=== PATIENT | male | born 1965 | race Caucasian/White ===

== ENCOUNTER 2017-12-14 07:14 | Outpatient (CLI) | payer BC, SELFPAY ==
[2017-12-14 08:39] LABS: Cholesterol 271 mg/dL (50-200); HDL Cholesterol 32 mg/dL (40-60); LDL CHOLESTEROL 173 mg/dL (<100); TSH (W/Ref FT4) 8.67 uIU/mL (0.358-3.74); Triglyceride 335 mg/dL (30-150)
[2017-12-16 09:21] LABS: PSA, Screening 1.2 ng/ml (0-3.5)
== END 2017-12-14 07:34 ==
PROVIDERS: PCP Internal Medicine; Visit Provider Internal Medicine
DX: E78.00 Pure hypercholesterolemia, unspecified (principal); E03.9 Hypothyroidism, unspecified; Z80.42 Family history of malignant neoplasm of prostate; Z12.5 Encounter for screening for malignant neoplasm of prostate
CPT/HCPCS: 36415; 80061; 83721; 84153; 84439; 84443

== ENCOUNTER 2018-05-17 15:22 | Emergency (ER) | payer BC, SELFPAY ==
[2018-05-17] VITALS (78 sets, daily range): BP systolic 137–169; BP diastolic 70–109; PULSE 58–73; RESP 12–22; TEMP 37.2–37.6; O2SAT 92–97
--- NOTE | 2018-05-17 15:29 | DI.RAD_ITS ---
SYMPTOMS/DIAGNOSIS: CHEST PAIN CHEST X-RAY, FRONTAL AND LATERAL VIEWS: Comparison is 09/14/14. The heart size and pulmonary vasculature are within normal limits. There is mild elevation of the right hemidiaphragm, not present on the prior examination. The lungs are clear. No effusions or pneumothoraces are identified. Mild degenerative changes are seen in the spine. IMPRESSION: 1. No acute pulmonary process. 2. Interval mild elevation of the right hemidiaphragm.
[2018-05-17] MEDS: Aspirin 81 MG CHEW 324 MG CH (15:32)
[2018-05-17] MEDS: Normal Saline Flush 10 ML SYR IVP (15:35)
--- NOTE | 2018-05-17 15:39 | ED.GENADUL_ITS ---
Discharge Plan Disposition Patient Disposition: STILL A PATIENT Condition: Stable Discharge Details Chief Complaint: Chest Pain Clinical Impression: Chest pain Reason For Visit: chest pain / sob Primary Care Provider: Marly Correa ED Provider: Jefferson Arvizu Home Meds and New Rx's Prescriptions: No Action hydroxyzine HCl 25 mg tablet 25 - 50 mg PO QID PRN (Reason: anxiety) Qty: 30 RF: 0 levothyroxine 100 mcg capsule 100 mcg PO DAILY Qty: 90 RF: 3 fluticasone 50 mcg/actuation spray,suspension 50 mcg NS DAILY PRN (Reason: allergy symptoms) Qty: 1 RF: 1 cetirizine 10 mg tablet 10 mg PO DAILY Qty: 90 RF: 1 Discharge Data Discharge Date/Time-TO BE ENTERED AT DEPARTURE: 05/18/18 14:53 Medical Decision Making <Ravi Gilliland MD - Last Filed: 05/18/18 15:51> 52 yo male who has a hx of anxiety, cervical radiculopathy, who comes in with chief complaint of chest pain. He states every once in a while he gets mild chest tightness that doesn't cause shortness of breath, n/v, diaphoresis and bridger n doesn't radiate. HE is a former smoker, denies any drug use or significant alcohol use. No recent travel or surgeries. HE saw his pcp for this today and had an ekg done which he states showed old heart attack and he came here for an eval. Denies any pain now, states he may have had a 1-2/10 tightness in the chest an hour or so ago. He appears well on exam in no distress with clear lungs, no leg swelling or leticia fpain, clear lungs and no murmurs. His ekg shows q waves in inferior leads and large s waves in v1-v3 otherwise no acute findings. His heart score is 3 based on age and risk factors, will send troponin. His wells score is low, will send d dimer to eval for PE. No tearing back pain and normal vascular exam so doubt dissection pt will be signed out to Dr. Monzon pending lab work, imaging and disposition Differential Diagnosis acs, pe, ptx, anxiety, gerd, gastritis ECG Data Attestation: I personally reviewed and interpreted this ECG (s) as follows: Prior ECG tracings: available for review Interpretation: sinus rhythm, rate of 60, pr 156, q waves in inferior leads that are unchanged, no acute st t wave chagnes. HPI <Ravi Gilliland MD - Last Filed: 05/18/18 15:51> General Mode of arrival: ambulatory . Date/Time Provider Initiated Documentation: 05/17/18 15:22 . Limitations to Documentation: no limitations . Information obtained by: patient . History of Present Illness 52 year old M presents to the emergency department with the chief complaint of chest pain, described as mild, with intensity rated at 3. Quality is described as aching, and is localized to the chest. Patient reports no radiation. Patient started experiencing this day(s) (1) and it has been constant. No relieving factors improve symptom(s), No exacerbating factors reported . Patient did receive the following treatments prior to arrival, none Related Data Home Medications Medication Instructions Recorded Confirmed cetirizine 10 mg tablet 10 mg PO DAILY #90 tab-cap 12/15/17 05/18/18 fluticasone 50 mcg/actuation nasal 50 mcg NS DAILY PRN #1 inh 12/15/17 05/18/18 spray,suspension levothyroxine 100 mcg capsule 100 mcg PO DAILY #90 cap 12/15/17 05/18/18 hydroxyzine HCl 25 mg tablet 25 - 50 mg PO QID PRN #30 tab-cap 05/17/18 05/18/18 Previous Rx's Medication Instructions Recorded cetirizine 10 mg tablet 10 mg PO DAILY #90 tab-cap 12/15/17 fluticasone 50 mcg/actuation nasal 50 mcg NS DAILY PRN #1 inh 12/15/17 spray,suspension levothyroxine 100 mcg capsule 100 mcg PO DAILY #90 cap 12/15/17 hydroxyzine HCl 25 mg tablet 25 - 50 mg PO QID PRN #30 tab-cap 05/17/18 Allergies Allergy/AdvReac Type Severity Reaction Status Date / Time No Known Drug Allergies Allergy Verified 05/18/18 10:01 seasonal allergy Allergy nasal Uncoded 05/18/18 10:01 congestion, blood shot eyes to ragweed Review of Systems <Ravi Gilliland MD - Last Filed: 05/18/18 15:51> Review of Systems All systems reviewed & are unremarkable except as noted in HPI and below Constitutional Denies chills, Denies fever(s) and Denies weakness ENT Denies change in voice Respiratory Denies cough Gastrointestinal Denies abdominal pain, Denies nausea and Denies vomiting Genitourinary Denies dysuria Musculoskeletal Denies joint swelling Integumentary/Breasts Denies rash Neurologic Denies weakness Psychiatric Denies depression Endocrine Denies cold intolerance and Denies heat intolerance PFSH <Ravi Gilliland MD - Last Filed: 05/18/18 15:51> Medical History Radiculopathy, 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) Insomnia (Chronic 08/31/14) History of hypothyroidism (Chronic 10/04/14) Anxiety (Chronic 08/31/14) Allergic rhinitis (Chronic 03/26/16) Hypothyroidism (Inactive) Surgical History Tonsillectomy and adenoidectomy (Resolved) colonoscopy (Resolved 03/20/17) Family History Father Dysplastic polyp of colon Thyroid condition Prostate cancer Grandfather Neoplasm Maternal Uncle Myocardial infarction Sister Dysplastic polyp of colon Brother Dysplastic polyp of colon Social History household members: spouse and children lives independently: Yes number of children: 3 current occupational status: employed current occupation: Teacher [employer] what type of physical activity do you participate in: running frequency: 3-4 times per week duration: 15-30 minutes/day Smoking and Tabacco status: Former Tobacco Use alcohol intake: current alcohol intake frequency: 0-2 drinks per day Alcohol type: beer Exam <Ravi Gilliland MD - Last Filed: 05/18/18 15:51> Const General: no acute distress Orientation: alert HENMT Head: normal to inspection Ears: external ears normal General nose exam: external nose normal Mouth: moist mucous membranes Eyes General: appearance normal, both eyes and all related structures Neck Neck: normal visual inspection Resp Effort & Inspection: normal respiratory effort and able to speak in complete sentences Cardio Rate: regular rate Skin General skin exam: no rashes or lesions noted Neuro General: alert and oriented x3 Extrem General: normal to inspection Psych Mental Status: mental status grossly normal Sign Out <Ravi Gilliland MD - Last Filed: 05/18/18 15:51> Sign Out Data: Sign Out Comment: follow up on labs/imaging Last updated by Ravi Gilliland MD at 05/17/18 15:45 Post-Handoff Eval: Patient signed out to me pending laboratory studies and chest x-ray. He had presented with an atypical history, but had chest pain and palpitations Thursday. However, he was able to skin [employer] over the weekend. He states he was way more tired and out of when that he normally is. He also developed shortness of breath just going upstairs. He has not really had any more chest pain. He has been worried over the weekend that something is wrong and saw his primary today. An EKG was done in the office. It was abnormal with Q waves. He has been set up for outpatient testing but was concerned and anxious about the abnormal EKG and came here. Patient's laboratory studies for the most part are unremarkable. TSH is a little high but is T4 is normal. Magnesium a little low. Troponin came back indeterminate at 0.17. D-dimer is negative. Chest x-ray is unremarkable. His EKG done today at the office and here in the ED is unchanged from an EKG in our system from 2015. Q waves are old. Case is discussed with cardiology at [facility], Dr. Busch. Was not overly concerned but felt trending troponins and getting an ECHO and possibly stress test would be reasonable. Discussed this with patient. Attempted to admit overnight here but there are no monitor beds available. Patient does have out patient stress test set up for . After long discussion with patient decided to keep in the ED overnight for serial troponins and getting ECHO tomorrow. I do not have a good explanation as to why his troponins are indeterminate. I have trended them and they have not gone up. He denies any viral type symptoms in the last months making myocarditis/pericarditis seem less likely. We will keep him on the monitor overnight. We will get 1 more troponin and EKG in the morning. He is signed out to Dr. Roy who is the overnight doctor.
[2018-05-17 15:48] LABS: Abs Immature Grans 0.01 k/cumm (0.0-0.09); Absolute Basophil Count 0.04 k/cumm (0.0-0.2); Absolute Eosinophil Count 0.26 k/cumm (0.0-0.7); Absolute Lymphocyte Count 2.19 k/cumm (1.2-3.4); Absolute Monocyte Count 0.49 k/cumm (0.11-0.7); Absolute Neutrophil Count 3.36 k/cumm (1.2-6.7); Basophils % 0.6; Eosinophils % 4.1; HCT 44.8 % (40.0-50.0); HGB 15.6 g/dL (13.5-17.5); Immature Grans % 0.2; Lymphocytes % 34.5; Mean Corp. HGB Concentration 34.8 g/dL (32.0-36.0); Mean Corpuscular Hemoglobin 29.8 pg (27.0-33.0); Mean Corpuscular Volume 85.7 fL (80-95); Mean Platelet Volume 11.7 fL (8.0-11.0); Monocytes % 7.7; Neutrophils % 52.9; Platelet Count 196 x1000/uL (130-400); RBC 5.23 m/cumm (4.50-6.00); RBC Distribution Width 12.9 % (11.8-14.1); White Blood Cell Count 6.35 k/cumm (4.4-10.8)
[2018-05-17 16:02] LABS: ALT 57 U/L (12-78); AST 48 U/L (15-37); Albumin 3.8 g/dL (3.4-5.0); Alkaline Phosphatase 66 U/L (46-116); Anion Gap 7.9 mmol/L (3-11); BUN 18 mg/dL (7-18); Bilirubin, Direct 0.13 mg/dL (0.00-0.20); Bilirubin, Total 0.5 mg/dL (0.2-1.0); CO2 28.1 mmol/L (21.0-32.0); CREATININE 0.93 mg/dL (0.70-1.30); Calcium 8.5 mg/dL (8.5-10.1); Chloride 103 mmol/L (98-107); Glucose 102 mg/dL (70-100); Lipase 144 U/L (73-393); Magnesium 1.7 mg/dL (1.8-2.4); Potassium 3.9 mmol/L (3.5-5.1); Sodium 139 mmol/L (136-145)
[2018-05-17 16:04] LABS: Troponin I 0.17 ng/mL (0.00-0.06)
--- NOTE | 2018-05-17 16:29 | DI.VRAD_ITS ---
EXAM: XR Chest, 2 Views EXAM DATE/TIME: 05/17/2018 3:30 PM CLINICAL HISTORY: 52 years old, male; Pain; Chest pain TECHNIQUE: XR of the chest, 2 views. COMPARISON: CR CHEST 2 VIEWS PA,LAT 09/14/2014 4:46 PM FINDINGS: Lungs: Mild elevation of the right hemidiaphragm. No focal areas of consolidation. Pleural space: No pleural effusion or pneumothorax. Heart/Mediastinum: Cardiac and mediastinal silhouettes are unremarkable. Bones/joints: No acute osseus lesion or fracture. IMPRESSION: 1. No acute cardiopulmonary pathology. 2. Mild elevation of the right hemidiaphragm. Dictated and Authenticated by: Saad Molina MD. Ordering:DAVID Rodrigues MD
[2018-05-17 16:38] LABS: D-Dimer 348 ng/mlFEU (<500)
[2018-05-17 19:29] LABS: Troponin I 0.15 ng/mL (0.00-0.06)
[2018-05-17 19:32] LABS: NT-proBNP 44 pg/mL; TSH (W/Ref FT4) 7.56 uIU/mL (0.358-3.74)
[2018-05-17 19:58] LABS: FREE T4 0.83 ng/dL (0.76-1.46)
[2018-05-17 22:00] LABS: Troponin I 0.15 ng/mL (0.00-0.06)
[2018-05-17] MEDS: diphenhydrAMINE 25 MG CAP PO (22:46)
[2018-05-18] VITALS (111 sets, daily range): BP systolic 129–174; BP diastolic 72–105; PULSE 48–81; RESP 10–23; TEMP 37; O2SAT 90–99
[2018-05-18] MEDS: Levothyroxine 100 MCG TAB PO (06:23)
[2018-05-18] MEDS: Aspirin 81 MG CHEW 162 MG CH (06:24)
[2018-05-18 06:33] LABS: Troponin I 0.09 ng/mL (0.00-0.06)
[2018-05-18] MEDS: Aspirin 81 MG CHEW (08:25)
--- NOTE | 2018-05-18 08:26 | W.ED.FU ---
8:30 -- Care signed out to me by Dr. Roy with plan to follow-up on echo and disposition patient. Please see Dr. Monzon and Dr. Gilliland's documentation from initial ED presentation and course. I immediately evaluated the patient and clinial course. [facility] last [place] [facility] recommended [place]. [facility] [place] and unable to accept transfer overnight. [facility] med surg full. I reviewed the diagnostic workup. It seems the patient has an NSTEMI with improving, although still elevated troponins. I called and spoke with Dr. Arroyo, [facility] cardiology, who will accept the patient in transfer. Recommends starting heparin infusion, plavix, aspirin. 14:20 --patient reassessed and remained stable. Echocardiogram interpreted by cardiology: LV systolic function was normal. The EF was 60-65%. Some parameters suggest diastolic dysfunction. There is no evidence of elevated ventricular filling pressure by Doppler parameters. There is mild mitral valve regurgitation. The right ventricle cavity size was mildly dilated. Systolic function was mildly reduced. Inferior vena cava was noted to be mildly dilated. I called again and spoke with cardiology at [facility], Dr. Arroyo, and informed him of results. Plan at this time is to transfer as there is no bed available. Patient is in serious condition, stable at time of transfer. Critical care time: I spent greater than 35 minutes of critical care time with this patient addressing immediate life threats. Diagnosis: Elevated troponin, NSTEMI Disposition: Transfer to [facility]
--- NOTE | 2018-05-18 08:32 | ED.FU.B_ITS ---
8:30 -- Care signed out to me by Dr. Roy with plan to follow-up on echo and disposition patient. Please see Dr. Monzon and Dr. Gilliland's documentation from initial ED presentation and course. I immediately evaluated the patient and clinial course. [facility] [place] by team last night: [facility] [place], they recommended echo. [facility] remains full and unable to accept transfer overnight. [facility] med surg full. I reviewed the diagnostic workup. It seems the patient has an NSTEMI with improving, although still elevated troponins. I called and spoke with Dr. Arroyo, [facility] cardiology, who will accept the patient in transfer. Recommends starting heparin infusion, plavix, aspirin. 14:20 --patient reassessed and remained stable. Echocardiogram interpreted by cardiology: LV systolic function was normal. The EF was 60-65%. Some parameters suggest diastolic dysfunction. There is no evidence of elevated ventricular filling pressure by Doppler parameters. There is mild mitral valve regurgitation. The right ventricle cavity size was mildly dilated. Systolic function was mildly reduced. Inferior vena cava was noted to be mildly dilated. I called again and spoke with cardiology at [facility], Dr. Arroyo, and informed him of results. Plan at this time is to transfer as there is no bed available. Patient is in serious condition, stable at time of transfer. Critical care time: I spent greater than 35 minutes of critical care time with this patient addressing immediate life threats. Diagnosis: Elevated troponin, NSTEMI Disposition: Transfer to [facility]
[2018-05-18] MEDS: Clopidogrel 300 MG TAB PO (08:35)
[2018-05-18] MEDS: LORazepam 1 MG TAB PO (09:00)
--- NOTE | 2018-05-18 09:00 | MERGE_ITS ---
*[facility]* * Cardiology* [address] [place] [address] Date of study: 05/18/2018 Transthoracic Echocardiography M-mode, complete 2D, complete spectral Doppler, and color Doppler *STUDY CONCLUSIONS* Summary: 1. Left ventricle: The cavity size was normal. Systolic function was normal. The estimated ejection fraction was 60-65%. Some parameters suggest diastolic dysfunction. There was no evidence of elevated ventricular filling pressure by Doppler parameters. 2. Mitral valve: There was mild regurgitation. 3. Right ventricle: The cavity size was mildly dilated. Systolic function was mildly reduced. 4. Atrial septum: No defect or patent foramen ovale was identified. 5. Pulmonary arteries: Pulmonary systolic pressure was in the range of 35mm Hg to 45mm Hg. 6. Inferior vena cava: The vessel was mildly dilated. The respirophasic diameter changes were in the normal range (greater than or equal to 50%), RAP est 5-10 mmHg.. *PATIENT PRESENTATION* Height: 190.5cm ((75in) ) S/D Pressure: 140 / 88 Weight: 99.3kg ((218.5lb) ) BSA: 2.31m^2 Test start time: 09:15 AM. Test stop time: 10:10 AM. CONSULTING Marly Correa [facility] [employer]PARATION SUPERVISOR RT Ethan (R)(CT), [facility] ORDERING River Monzon Robert J REFERRING Grant *PROCEDURE DATA* Procedure information: The patient was identified by two identifiers. This study was interpreted by [facility]. Pertinent images and digital data are archived for permanent storage and are available for subsequent review. No prior study was available for comparison. Study status: STAT. Transthoracic echocardiography. M-mode, complete 2D, complete spectral Doppler, and color Doppler. A Transthoracic Echocardiogram was performed. Scanning was performed from the parasternal, apical, subcostal, and suprasternal notch acoustic windows. Images were obtained using an [id number] cardiac ultrasound machine. Study completion: The patient tolerated the procedure well. History: PMH: Wade pain. Indeterminate troponin. *CARDIAC ANATOMY* Left ventricle: The cavity size was normal. Systolic function was normal. The estimated ejection fraction was 60-65%. The tissue Doppler parameters were abnormal. Some parameters suggest diastolic dysfunction. There was no evidence of elevated ventricular filling pressure by Doppler parameters. Aortic valve: Trileaflet. Doppler: There was no stenosis. There was no regurgitation. VTI ratio of LVOT to aortic valve: 0.72. Valve area (VTI): 2.2cm^2. Indexed valve area (VTI): 1cm^2/m^2. Peak velocity ratio of LVOT to aortic valve: 0.69. Valve area (Vmax): 2.1cm^2. Indexed valve area (Vmax): 0.9cm^2/m^2. Mean velocity ratio of LVOT to aortic valve: 0.67. Valve area (Vmean): 2.1cm^2. Indexed valve area (Vmean): 0.9cm^2/m^2. Mean gradient (S): 6.8mm Hg. Peak gradient (S): 11.8mm Hg. Aorta: Aortic root: The aortic root was normal in size. Mitral valve: Doppler: There was no evidence for stenosis. There was mild regurgitation. Valve area by pressure half-time: 2.3cm^2. Indexed valve area by pressure half-time: 1cm^2/m^2. Left atrium: The atrium was normal in size. Atrial septum: No defect or patent foramen ovale was identified. Right ventricle: The cavity size was mildly dilated. Systolic function was mildly reduced. Pulmonic valve: Doppler: There was no evidence for stenosis. There was no significant regurgitation. Tricuspid valve: Doppler: There was mild regurgitation. Pulmonary artery: Poorly visualized. Pulmonary systolic pressure was in the range of 35mm Hg to 45mm Hg. Right atrium: The atrium was normal in size. Pericardium: There was no pericardial effusion. Systemic veins: Inferior vena cava: Well visualized. The vessel was mildly dilated. The respirophasic diameter changes were in the normal range (greater than or equal to 50%), RAP est 5-10 mmHg.. Baseline ECG: Normal sinus rhythm. Measurements Left ventricle Value Reference LV ID, ED, PLAX 5.1 cm 3.5 - 6.0 LV ID, ES, PLAX 3.4 cm 2.1 - 4.0 LV PW thickness, ED, PLAX 1.1 cm LV end-diastolic volume, 1-p A2C 113 ml LV ejection fraction, 1-p A2C 67 % LV end-diastolic volume, 1-p A4C 123 ml LV ejection fraction, 1-p A4C 57 % LV e', lateral 0.045 m/sec LV E/e', lateral 14 LV e', medial 0.051 m/sec LV E/e', medial 12 LV e', average 0.048 m/sec LV E/e', average 13 Ventricular septum Value Reference IVS thickness, ED, PLAX 1.2 cm LVOT Value Reference LVOT ID, A-P 2.0 cm LVOT area 3.1 cm^2 LVOT peak velocity, S 1.18 m/sec LVOT mean velocity, S 0.85 m/sec LVOT VTI, S 25.2 cm LVOT peak gradient, S 5.6 mm Hg LVOT mean gradient, S 3.2 mm Hg Stroke volume (SV), LVOT DP 78 ml Stroke index (SV/bsa), LVOT DP 34 ml/m^2 Aortic valve Value Reference Aortic valve peak velocity, S 1.7 m/sec Aortic valve mean velocity, S 1.26 m/sec Aortic valve VTI, S 35.0 cm Aortic mean gradient, S 6.8 mm Hg Aortic peak gradient, S 11.8 mm Hg VTI ratio, LVOT/AV 0.72 Aortic valve area, VTI 2.2 cm^2 Velocity ratio, peak, LVOT/AV 0.69 Aortic valve area, peak velocity 2.1 cm^2 Velocity ratio, mean, LVOT/AV 0.67 Aortic valve area, mean velocity 2.1 cm^2 Aortic valve area/bsa, mean velocity 0.9 cm^2/m^2 Aorta Value Reference Aortic root ID, ED 3.3 cm Left atrium Value Reference LA ID, A-P, ES 4.3 cm LA ID/bsa, A-P 1.9 cm/m^2 <=2.2 LA area, ES, A4C 23.1 cm^2 8.8 - 23.4 LA area, ES, A2C 22 cm^2 LA volume/bsa, ES, 1-p A4C 35 ml/m^2 LA volume, ES, 2-p 71 ml LA volume/bsa, ES, 2-p 31 ml/m^2 LA/aortic root ratio 1.32 Mitral valve Value Reference Mitral E-wave peak velocity 0.63 m/sec Mitral A-wave peak velocity 0.87 m/sec Mitral deceleration time (H) 326 ms 150 - 230 Mitral pressure half-time 94 ms Mitral E/A ratio, peak 0.73 Mitral valve area, PHT, DP 2.3 cm^2 Pulmonary veins Value Reference Pulmonary vein peak velocity, S 0.6 m/sec Pulmonary vein peak velocity, D 0.39 m/sec Pulmonary vein velocity ratio, peak, 1.55 S/D Pulmonary vein A-wave reversal peak 0.32 m/sec velocity Tricuspid valve Value Reference Tricuspid regurg peak velocity 2.8 m/sec Tricuspid peak RV-RA gradient 30.3 mm Hg Right atrium Value Reference RA area, ES, A4C 18.3 cm^2 8.3 - 19.5 Legend: (L) and (H) harvey values outside specified reference range. I have personally reviewed the images and have reviewed and edited the reported findings. Electronically signed by Ravi Liu MD 05/18/2018 11:27
[2018-05-18] MEDS: Lactated Ringers 1,000 ML 125 ML IV (10:51)
== END 2018-05-18 14:53 | disposition still patient (30) ==
PROVIDERS: Emergency Medicine; Emergency Provider Student in an Organized Health Care Education/Training Program; PCP Internal Medicine
DX: R07.9 Chest pain, unspecified (principal); R00.2 Palpitations; R06.02 Shortness of breath
CPT/HCPCS: 36415; 80053; 80076; 83690; 93005; 96361; 96365; 96366; 96376; 99285; 71046; 83735; 83880; 84439; 84443; 84484; 85025; 85379; 93010; 93306; J3490

== ENCOUNTER 2018-05-21 03:03 | Emergency (ER) | payer BC, SELFPAY ==
[2018-05-21] VITALS (94 sets, daily range): BP systolic 100–134; BP diastolic 54–88; PULSE 53–86; RESP 10–23; TEMP 36.5; O2SAT 92–98
--- NOTE | 2018-05-21 03:17 | DI.RAD_ITS ---
SYMPTOM/DIAGNOSIS: CHEST PAIN PORTABLE AP CHEST: The diaphragm is elevated on the right as noted on examination of 05/17/18. Heart is not enlarged. The lungs appear clear. CONCLUSION: No evidence of acute change.
--- NOTE | 2018-05-21 03:18 | W.ED.GENAD ---
Discharge Plan Disposition Patient Disposition: JAMIR ALVAREZ ([facility]) Condition: Stable Discharge Details Chief Complaint: Anxiety Clinical Impression: Chest tightness, Elevated troponin, Acute non-ST elevation myocardial infarction (NSTEMI) Primary Care Provider: Marly Correa ED Provider: Deshaun Roy Home Meds and New Rx's Prescriptions: No Action hydroxyzine HCl 25 mg tablet 25 - 50 mg PO QID PRN (Reason: anxiety) Qty: 30 RF: 0 levothyroxine 100 mcg capsule 100 mcg PO DAILY Qty: 90 RF: 3 fluticasone 50 mcg/actuation spray,suspension 50 mcg NS DAILY PRN (Reason: allergy symptoms) Qty: 1 RF: 1 cetirizine 10 mg tablet 10 mg PO DAILY Qty: 90 RF: 1 atorvastatin [Lipitor] 40 mg tablet 40 mg PO DAILY RF: 0 clopidogrel [Plavix] 75 mg tablet 75 mg PO DAILY RF: 0 aspirin [Adult Low Dose Aspirin] 81 mg tablet,delayed release (DR/EC) 81 mg PO DAILY RF: 0 lisinopril 10 mg tablet 10 mg PO DAILY RF: 0 Medical Decision Making <Cassandra Ibarra DO - Last Filed: 05/21/18 08:07> 52-year-old male with a history of anxiety, insomnia, hypothyroidism and recent NSTEMI for which he received 1 cardiac stent placement 2 days ago who presents for palpitations, sob, and chest tightness which resolved on arrival to ED after 4 hours at home. Pt states he took a hydroxyzine as he thought his symptoms due to anxiety after receiving distressing phone call tonight. Vitals within normal limits. EKG notes a rate of 61, sinus, no acute ST elevation or depression. The report on the EKG read as lateral ST elevation, but this was seen in previous and does not appear acute. Patient was just discharged from [facility] this morning. We will do a cardiac workup, portable chest x-ray and call [facility] cardiology for recommendations 0330 --[facility] cardiology Dr. Bustamante. He reviewed EKGs from today and ED visit 3 days ago and does not see any acute change or acute findings. Recommends serial troponins to see if up or downtrending. As patient had a cardiac catheterization this week, with a newly diagnosed LAD lesion and stent placed, would suspect acute changes in the anterior leads which are not evident. Will follow up on 4-hour troponin with cardiology with any recommendations. 0345 -- Trop 0.13. His troponins from a 3 days ago were 0.17, 0.15, and 0.09. His troponin prior to discharge from [facility] was 0.07. These results were discussed with Dr. Bustamante and he recommends a 4-hour troponin to see if downtrending. Patient was informed of plan and is agreeable. Mag 1.5, will replete. Remainder of labs unremarkable. Chest x-ray appears stable. 0800 --case endorsed to Dr. Roy to f/u on repeat troponin and f/u with cardiology. Repeat troponin 0.14. Will call [facility] cards. Medical Records Medical records reviewed: Yes I reviewed the patient's medical records. Imaging Data Radiologic Study: Radiologist's impression: XR Chest, 1 View EXAM DATE/TIME: 05/21/2018 3:19 AM FINDINGS: Lungs: Unremarkable. No consolidation. Pleural space: Unremarkable. No evidence of pneumothorax. Heart/Mediastinum: Unremarkable. Heart size within normal limits for technique. Upper abdomen: Chronically elevated right hemidiaphragm. Bones/joints: Unremarkable. IMPRESSION: No acute findings. ECG Data Attestation: I personally reviewed and interpreted this ECG (s) as follows: Interpretation: Rate of 61, sinus, no acute ST elevation or depression. QTc 401. QRS 94. <Deshaun Roy DO - Last Filed: 05/21/18 15:48> Case is signed out to me my my colleague Dr. Ibarra. This is a 52-year-old male with known cardiac disease who recently had a stent in his LAD after having had an elevated troponin and symptoms of shortness of breath. He presented last night with palpitations shortness of breath and chest tightness. Initial troponin here was mildly elevated, unfortunately repeat troponin does show a very mild upward trend to 0.14, he has received aspirin. I did contact Dr. Kimbrough at the [facility] and discussed the case with him. He agrees on the need for repeat evaluation, and he does recommend cardiac catheterization for reassessment. We will start the patient on heparin, and give a bolus. Unfortunately they do not have any beds available [facility] at this time, and recommend holding for the next 24 hours until a bed does present. We also did contact [facility], and they currently have a similar bed status and are unwilling to accept any non-critical patients at this time. We will admit the patient for continued heparinization, serial troponins, and eventual transfer to [facility] 2:24 PM Unfortunately there are no beds available here in the hospital, despite the initial thought that there may be some discharges. We have contacted [facility], [facility], [facility], all of which have no current beds at this time. We did contact [facility] and they do have beds but they are unwilling to accept the patient at this time. Trying to be a patient advocate to expedite his care so that he can get the appropriate care needed, since the ER and hospital at [facility] is currently over capacity, and staying here is certainly not the best interest of the patient especially for the needs of definitive medical care and knowing that he recently had his cardiac catheterization, we did contact [facility] multiple times and have discussed the case with and she is the embedded processor, and she will try to move the patient up to top priority for transfer given his needs and current clinical disposition. We are still waiting on bed availability at [facility]. Vital signs continue to remain stable and normal, he is currently being heparinized. 3:46 PM There is no bed availability at the [facility]. The patient will be transferred there for definitive management cardiac catheterization. He will be transferred to cardiology under Dr. Kimbrough. I have extensively reviewed the treatment plan with the patient. I have addressed all patient concerns at this time. I have also discussed the plan with the admitting physician and they agree with the current assessment and plan and have agreed to assume responsibility for the patient. All parties demonstrate verbal understanding and agreement with our assessment and plan at this time. EKG 13: 15 Rate 67, intervals normal, sinus rhythm, no significant T wave inversions except for in lead III, Q waves in lead III. 1 mm elevation in V2 and less than 1 mm elevation in V1, no reciprocal depressions. Findings consistent with prior EKG. HPI <Cassandra Ibarra DO - Last Filed: 05/21/18 08:07> General Mode of arrival: ambulatory. Date/Time Provider Initiated Documentation: 05/21/18 03:07. Limitations to Documentation: no limitations. Information obtained by: patient. HPI Narrative: Patient is a 52-year-old male with a history of anxiety, insomnia, hypothyroidism and recent NSTEMI who presents for tachycardia, shortness of breath and chest tightness for the past 4 hours. Patient states he received a phone call from his mom which was distressing for him, and later on he developed palpitations shortness of breath. Patient states after that he began to feel his chest tightness. Patient states he was discharged from [facility] today after transferred from [facility] 2 days ago for NSTEMI, patient states he ultimately underwent a cardiac catheterization and was found to have a lesion in his LAD for which she received 1 stent. Patient states he had been feeling well upon discharge today until tonight. He states he took hydroxyzine at 8 PM tonight due to feelings of anxiety. He denies any symptoms at present. Related Data Home Medications Medication Instructions Recorded Confirmed cetirizine 10 mg tablet 10 mg PO DAILY #90 tab-cap 12/15/17 05/18/18 fluticasone 50 mcg/actuation nasal 50 mcg NS DAILY PRN #1 inh 12/15/17 05/21/18 spray,suspension levothyroxine 100 mcg capsule 100 mcg PO DAILY #90 cap 12/15/17 05/21/18 hydroxyzine HCl 25 mg tablet 25 - 50 mg PO QID PRN #30 tab-cap 05/17/18 05/21/18 atorvastatin 40 mg tablet 40 mg PO DAILY 05/19/18 05/21/18 aspirin 81 mg tablet,delayed 81 mg PO DAILY 05/20/18 05/21/18 release clopidogrel 75 mg tablet 75 mg PO DAILY 05/20/18 05/21/18 lisinopril 10 mg tablet 10 mg PO DAILY 05/20/18 05/21/18 Previous Rx's Medication Instructions Recorded cetirizine 10 mg tablet 10 mg PO DAILY #90 tab-cap 12/15/17 fluticasone 50 mcg/actuation nasal 50 mcg NS DAILY PRN #1 inh 12/15/17 spray,suspension levothyroxine 100 mcg capsule 100 mcg PO DAILY #90 cap 12/15/17 hydroxyzine HCl 25 mg tablet 25 - 50 mg PO QID PRN #30 tab-cap 05/17/18 Allergies Allergy/AdvReac Type Severity Reaction Status Date / Time No Known Drug Allergies Allergy Verified 05/18/18 10:01 seasonal allergy Allergy nasal Uncoded 05/18/18 10:01 congestion, blood shot eyes to ragweed General Stated Complaint: Anxiety KAYLA: 2 Review of Systems <Cassandra Ibarra DO - Last Filed: 05/21/18 08:07> Review of Systems All systems reviewed & are unremarkable except as noted in HPI and below Constitutional Reports as per HPI, Denies chills and Denies fever(s) Eyes Denies blurry vision ENT Denies dizziness, Denies sore throat and Denies throat swelling Cardiovascular Reports chest pain and Reports dyspnea Respiratory Denies cough and Reports dyspnea Gastrointestinal Denies abdominal pain, Denies diarrhea and Denies vomiting Genitourinary Denies hematuria and Denies dysuria Musculoskeletal Denies back pain and Denies numbness Integumentary/Breasts Denies lesions and Denies rash Neurologic Denies dizziness, Denies focal weakness and Denies numbness Allergic/Immunologic Denies throat swelling PFSH <Cassandra Ibarra DO - Last Filed: 05/21/18 08:07> Medical History Radiculopathy, 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) Insomnia (Chronic 08/31/14) Anxiety (Chronic 08/31/14) Allergic rhinitis (Chronic 03/26/16) NSTEMI (non-ST elevated myocardial infarction) (Acute) Hypothyroidism (Inactive) Surgical History History of adenoidectomy (Acute) S/P cardiac cath (Acute 05/19/18) History of coronary artery stent placement (Chronic) History of tonsillectomy (Chronic) Tonsillectomy and adenoidectomy (Resolved) colonoscopy (Resolved 03/20/17) Family History Father Dysplastic polyp of colon Thyroid condition Prostate cancer Grandfather Neoplasm Maternal Uncle Myocardial infarction Sister Dysplastic polyp of colon Brother Dysplastic polyp of colon Social History household members: spouse and children lives independently: Yes number of children: 3 current occupational status: employed current occupation: Teacher [employer] what type of physical activity do you participate in: running frequency: 3-4 times per week duration: 15-30 minutes/day Smoking and Tabacco status: Former Tobacco Use alcohol intake: current alcohol intake frequency: 0-2 drinks per day Alcohol type: beer Exam <DO Nayely Barahona Last Filed: 05/21/18 08:07> Const General: cooperative, healthy appearing and no acute distress HENMT Head: normal to inspection Face and sinus: normal facial exam Eyes General: appearance normal, both eyes and all related structures EOM: EOM intact bilaterally Neck Neck: normal visual inspection and No submandibular swelling Lymphatic: no lymphadenopathy noted Chest Chest: normal inspection of the chest and no tenderness Resp Effort & Inspection: normal respiratory effort and able to speak in complete sentences Auscultation: clear to auscultation bilaterally Cardio Rate: regular rate Rhythm: regular rhythm GI Inspection: normal to inspection Palpation: soft, not firm, not rigid and nontender Auscultation: normal bowel sounds Skin General skin exam: no rashes or lesions noted Neuro General: alert, awake and oriented x3 Cognition: normal cognition Speech: speech normal Motor: muscle tone normal throughout Sensory Exam: no sensory deficits noted Extrem General: normal to inspection, full ROM, normal capillary refill and no edema Psych Appearance: grossly normal Mental Status: mental status grossly normal Speech and Movement: speech and movement normal Affect: normal affect Course <DO Nayely Barahona Last Filed: 05/21/18 08:07> Vital Signs Temperature 97.7 F 05/21/18 03:09 Pulse 62 05/21/18 03:09 Respiratory Rate 18 05/21/18 03:09 Pulse Oximetry 97 05/21/18 03:09 Temperature 97.7 F 05/21/18 03:09 Temperature Source Temporal Artery Scan 05/21/18 03:09 Pulse 62 05/21/18 03:09 Respiratory Rate 18 05/21/18 03:09 Respiratory Effort Non-Labored 05/21/18 03:16 Pulse Oximetry 97 05/21/18 03:09 Oxygen Delivery Method Room Air 05/21/18 03:09 Oxygen Flow Rate 0 05/21/18 03:09 Pain Level 0 05/21/18 03:09
--- NOTE | 2018-05-21 03:27 | NUR.NOTE ---
Nursing Note: At this time, patient is chest pain free but states he feels very anxious. EKG obtained. NSR on monitor.
[2018-05-21 03:30] LABS: Abs Immature Grans 0.02 k/cumm (0.0-0.09); Absolute Basophil Count 0.04 k/cumm (0.0-0.2); Absolute Eosinophil Count 0.24 k/cumm (0.0-0.7); Absolute Lymphocyte Count 2.45 k/cumm (1.2-3.4); Absolute Monocyte Count 0.67 k/cumm (0.11-0.7); Absolute Neutrophil Count 3.35 k/cumm (1.2-6.7); Basophils % 0.6; Eosinophils % 3.5; HCT 44.7 % (40.0-50.0); HGB 15.5 g/dL (13.5-17.5); Immature Grans % 0.3; Lymphocytes % 36.2; Mean Corp. HGB Concentration 34.7 g/dL (32.0-36.0); Mean Corpuscular Hemoglobin 29.9 pg (27.0-33.0); Mean Corpuscular Volume 86.1 fL (80-95); Mean Platelet Volume 11.3 fL (8.0-11.0); Monocytes % 9.9; Neutrophils % 49.5; Platelet Count 197 x1000/uL (130-400); RBC 5.19 m/cumm (4.50-6.00); RBC Distribution Width 12.8 % (11.8-14.1); White Blood Cell Count 6.77 k/cumm (4.4-10.8)
[2018-05-21 03:46] LABS: ALT 96 U/L (12-78); AST 54 U/L (15-37); Albumin 3.8 g/dL (3.4-5.0); Alkaline Phosphatase 59 U/L (46-116); Anion Gap 6.5 mmol/L (3-11); BUN 14 mg/dL (7-18); Bilirubin, Total 0.8 mg/dL (0.2-1.0); CO2 30.5 mmol/L (21.0-32.0); CREATININE 1.02 mg/dL (0.70-1.30); Calcium 8.9 mg/dL (8.5-10.1); Chloride 103 mmol/L (98-107); Glucose 96 mg/dL (70-100); Magnesium 1.6 mg/dL (1.8-2.4); Potassium 4.1 mmol/L (3.5-5.1); Sodium 140 mmol/L (136-145); Total Protein 7.8 g/dL (6.4-8.2)
[2018-05-21 03:50] LABS: Troponin I 0.13 ng/mL (0.00-0.06)
[2018-05-21] MEDS: Aspirin 81 MG CHEW 243 MG PO (04:15)
[2018-05-21] MEDS: MAGNESIUM SULFATE 1 GM/100 ML BAG IVPB (04:16)
--- NOTE | 2018-05-21 04:19 | DI.VRAD_ITS ---
EXAM: XR Chest, 1 View EXAM DATE/TIME: 05/21/2018 3:19 AM CLINICAL HISTORY: 52 years old, male; Pain; Chest pain; Type not specified TECHNIQUE: XR of the chest, 1 view. COMPARISON: CR XR CHEST 2V PA LATERAL 05/17/2018 3:52 PM FINDINGS: Lungs: Unremarkable. No consolidation. Pleural space: Unremarkable. No evidence of pneumothorax. Heart/Mediastinum: Unremarkable. Heart size within normal limits for technique. Upper abdomen: Chronically elevated right hemidiaphragm. Bones/joints: Unremarkable. IMPRESSION: No acute findings. Dictated and Authenticated by: Trey Pierce MD. Ordering:SONIA Trujillo MD
--- NOTE | 2018-05-21 04:22 | NUR.NOTE ---
Nursing Note: Iv magnesium infusing. given 3 additional baby ASA. lights dimmed for comfort, patient is going to try to rest until repeat troponin at 0730. call light in reach, will continue to monitor.
[2018-05-21 08:02] LABS: Troponin I 0.14 ng/mL (0.00-0.06)
[2018-05-21] MEDS: Heparin 5,000 UNITS/ML VIAL 5000 UNITS IV (08:45)
[2018-05-21] MEDS: LORazepam 2 MG/ML VIAL 1 MG IVP (13:44)
[2018-05-21 15:02] LABS: INR 1.1 (0.9-1.1); PTT Activated 36.8 sec (21.0-31.4)
[2018-05-21 15:03] LABS: Troponin I 0.11 ng/mL (0.00-0.06)
[2018-05-21 16:05] LABS: Prothrombin Time 10.4 sec (9.3-11.0)
[2018-05-21] MEDS: LORazepam 2 MG/ML VIAL 1 MG IM/IVP (17:42)
== END 2018-05-21 17:42 | disposition short-term general hospital (02) ==
PROVIDERS: Physician Assistant; Emergency Provider Student in an Organized Health Care Education/Training Program; PCP Internal Medicine
DX: R00.2 Palpitations (principal); R06.02 Shortness of breath; I22.0 Subsequent ST elevation (STEMI) myocardial infarction of anterior wall; R07.89 Other chest pain; R77.8 Other specified abnormalities of plasma proteins; E83.42 Hypomagnesemia; I25.10 Atherosclerotic heart disease of native coronary artery without angina pectoris; Z95.5 Presence of coronary angioplasty implant and graft
CPT/HCPCS: 36415; 80053; 93005; 96365; 96366; 96367; 96375; 96376; 99285; 71045; 83735; 84484; 85025; 85610; 85730; 93010; J1644; J2060; J3475

== ENCOUNTER 2018-05-25 01:08 | Emergency (ER) | payer BC, SELFPAY ==
[2018-05-25] VITALS (15 sets, daily range): BP systolic 130–148; BP diastolic 74–119; PULSE 58–72; RESP 6–22; TEMP 37.1; O2SAT 92–96
--- NOTE | 2018-05-25 01:16 | W.ED.GENAD ---
Discharge Plan Disposition Patient Disposition: HOME Condition: Good Discharge Details Chief Complaint: Chest Pain Clinical Impression: Chest tightness, Anxiety Reason For Visit: SMITA Primary Care Provider: Marly Correa ED Provider: Deshaun Roy Home Meds and New Rx's Prescriptions: No Action hydroxyzine HCl 25 mg tablet 25 - 50 mg PO QID PRN (Reason: anxiety) Qty: 30 RF: 0 levothyroxine 100 mcg capsule 100 mcg PO DAILY Qty: 90 RF: 3 fluticasone 50 mcg/actuation spray,suspension 50 mcg NS DAILY PRN (Reason: allergy symptoms) Qty: 1 RF: 1 cetirizine 10 mg tablet 10 mg PO DAILY Qty: 90 RF: 1 atorvastatin [Lipitor] 40 mg tablet 40 mg PO DAILY RF: 0 clopidogrel [Plavix] 75 mg tablet 75 mg PO DAILY RF: 0 aspirin [Adult Low Dose Aspirin] 81 mg tablet,delayed release (DR/EC) 81 mg PO DAILY RF: 0 lisinopril 10 mg tablet 10 mg PO DAILY RF: 0 isosorbide mononitrate 30 mg tablet extended release 24 hr 30 mg PO DAILY RF: 0 nitroglycerin 0.4 mg tablet, sublingual 0.4 mg SL Q5-15M PRNRF: 0 sertraline 25 mg tablet 25 mg PO DAILY RF: 0 Discharge Instructions Instructions: Anxiety (ED) Additional Instructions: Please follow-up closely with your primary care provider today. Please continue to take your home medications as prescribed. If you notice any worsening of your symptoms, or any new symptoms such as vomiting, diarrhea, fever, chills, shortness of breath, chest pain, numbness, weakness, or fainting , please return immediately to the emergency department for reevaluation. Please follow up with your primary care provider as soon as possible for reassessment and reevaluation. As always, it was a pleasure participating in your medical care today. Referrals: Marly Correa MD [Primary Care Provider] - Medical Decision Making This is a pleasant 52-year-old male with a past medical history of hypothyroidism, and coronary artery disease for which he has a cardiac stent which he got 2 weeks ago. He presents today for evaluation of anxiety attack and mild chest pressure. The patient has a history of anxiety, and has had symptoms like this in the past with his episodes of anxiety, however of note his N STEMI that he had 2 weeks ago was without chest pain but rather was with shortness of breath and fatigue. Tonight the patient had his episode of chest pain anxiety-like episode while he was watching a movie about a father dying. He had sensation of warmth and tightness in his chest. When EMS arrived he began feeling better, per protocol was given aspirin and nitroglycerin. By the time he arrived to the ER he had complete resolution of his symptoms. He does not feel that the nitro changed his symptomatology at all. He has been out of his lorazepam from [facility] and is scheduled to get it refilled with his primary care provider tomorrow morning. Patient does not feel that this feels similar to his previous NSTEMI episode, and instead more like an anxiety episode. On his last visit to the emergency department the patient did have a mild bump in his troponin, he was eventually sent to the [facility], with the observed him, give him a long-acting nitro, the discharge and for close follow-up with his PCP. Currently the patient's vital signs are very reassuring, he shows no significant abnormalities, his chest pain is completely resolved, signs and symptoms appear clinically inconsistent with ACS. EKG shows the chronic findings from his previous EKGs, no acute changes. We will evaluate for cardiac etiologies, and reassess 4:30 AM Patient's repeat EKG, and repeat serial troponin are both normal and within normal limits. No acute changes on EKG. Patient still feels asymptomatic at this time. I feel his signs and symptoms are clinically inconsistent with ACS, and consistent with anxiety attack. Patient does agree with this. Patient does have clear cardiac history, but with symptoms that are inconsistent with this I do feel that he can be safely discharged home. With a normal troponin, normal serial EKGs, and no signs or symptoms that resemble his previous visits and symptomatology where there was an acute cardiac issue, we will discharge him home with close follow-up in the next 12 hours with his primary care provider. We discussed red flags for which to immediately return the patient understands. I have extensively reviewed the treatment plan and discharge instructions with the patient. I have addressed all patient concerns at this time. The patient was made aware of what symptoms to monitor for that would warrant a return to the emergency department. Discussed the plan with the patient, they demonstrate verbal understanding and agreement with our assessment and plan at this time. EKG 1: 09 AM Rate 64, sinus rhythm, intervals normal, Q wave in lead III and aVF, [address] elevation in V2 and V3, no ST depression, inverted T wave in lead III. No other significant abnormality, findings consistent with prior EKG from 05/21/18 EKG 3: 48 Rate 56, intervals normal, sinus bradycardia, Q wave in lead III and aVF, [address] elevation in V2 and V3, no ST depression, inverted T wave in lead III. No other significant abnormality, findings consistent with prior EKG COMPARISON: CR XR PORTABLE CHEST AP 05/21/2018 3:33 AM FINDINGS: Lungs: Mild chronic elevation of the right hemidiaphragm, no significant change. No consolidation. Pleural space: Unremarkable. No pleural effusion. No pneumothorax. Heart/Mediastinum: Unremarkable. No cardiomegaly. Bones/joints: Unremarkable. IMPRESSION: No acute findings. Dictated and Authenticated by: Shellie Delgadillo MD. HPI General Date/Time Provider Initiated Documentation: 05/25/18 01:14. HPI Narrative: This is a 52-year-old male with a past medical history of hypothyroidism, and coronary artery disease with a stent placed in the LAD within the past week, who presents today for evaluation of chest pressure and tightness. Tonight the patient was watching a movie about a father dying when he developed some chest tightness, felt very anxious and nervous, had a warm sensation in his chest. The patient felt the most relief of his symptoms when the EMS arrived, he states that this is how his anxiety attacks have felt in the past. He was given 325 aspirin and nitroglycerin, and had questionable improvement of his symptoms with that, however by the time he arrived to the ER he had complete resolution of his symptoms. He denies any arm neck or shoulder pain. He denies any vomiting or diarrhea. The patient states that the symptoms are inconsistent with the symptoms that he had when he had his last NSTEMI as that was primarily with progressive shortness of breath. Also of note the patient did run out of his lorazepam today, and it was not able to take any when the symptoms first occurred which she would normally do. Historically, the patient had an NSTEMI roughly 2-1/2 weeks ago, where he received a stent at the [facility]. He was then back in the emergency department slightly less than a week ago where he had some mild chest discomfort and had a very small bump in his troponin. He was eventually transferred to the [facility] again where they did no additional interventional management, he was started on a long-acting nitro, and then discharged with follow-up with his PCP which is scheduled for tomorrow. Patient has been taking his Plavix as directed. He denies any other complaints. He denies any pleuritic chest pain. He denies any numbness tingling or weakness. Related Data Home Medications Medication Instructions Recorded Confirmed cetirizine 10 mg tablet 10 mg PO DAILY #90 tab-cap 12/15/17 05/25/18 fluticasone 50 mcg/actuation nasal 50 mcg NS DAILY PRN #1 inh 12/15/17 05/25/18 spray,suspension levothyroxine 100 mcg capsule 100 mcg PO DAILY #90 cap 12/15/17 05/25/18 hydroxyzine HCl 25 mg tablet 25 - 50 mg PO QID PRN #30 tab-cap 05/17/18 05/25/18 atorvastatin 40 mg tablet 40 mg PO DAILY 05/19/18 05/25/18 aspirin 81 mg tablet,delayed 81 mg PO DAILY 05/20/18 05/25/18 release clopidogrel 75 mg tablet 75 mg PO DAILY 05/20/18 05/25/18 lisinopril 10 mg tablet 10 mg PO DAILY 05/20/18 05/25/18 isosorbide mononitrate ER 30 mg 30 mg PO DAILY 05/24/18 05/25/18 tablet,extended release 24 hr nitroglycerin 0.4 mg sublingual 0.4 mg SL Q5-15M PRN 05/24/18 05/25/18 tablet sertraline 25 mg tablet 25 mg PO DAILY 05/24/18 05/25/18 Previous Rx's Medication Instructions Recorded cetirizine 10 mg tablet 10 mg PO DAILY #90 tab-cap 12/15/17 fluticasone 50 mcg/actuation nasal 50 mcg NS DAILY PRN #1 inh 12/15/17 spray,suspension levothyroxine 100 mcg capsule 100 mcg PO DAILY #90 cap 12/15/17 hydroxyzine HCl 25 mg tablet 25 - 50 mg PO QID PRN #30 tab-cap 05/17/18 Allergies Allergy/AdvReac Type Severity Reaction Status Date / Time No Known Drug Allergies Allergy Verified 05/25/18 01:16 seasonal allergy Allergy nasal Uncoded 05/25/18 01:16 congestion, blood shot eyes to ragweed General Stated Complaint: Chest Pain KAYLA: 3 Review of Systems Review of Systems All systems reviewed & are unremarkable except as noted in HPI and below PFSH Medical History Radiculopathy, 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) Insomnia (Chronic 08/31/14) Anxiety (Chronic 08/31/14) Allergic rhinitis (Chronic 03/26/16) NSTEMI (non-ST elevated myocardial infarction) (Acute) Hypothyroidism (Inactive) Social History household members: spouse and children lives independently: Yes number of children: 3 current occupational status: employed current occupation: Teacher [employer] what type of physical activity do you participate in: running frequency: 3-4 times per week duration: 15-30 minutes/day Smoking and Tabacco status: Former Tobacco Use alcohol intake: current alcohol intake frequency: 0-2 drinks per day Alcohol type: beer Exam Narrative Exam Narrative: 1.Const: Well-nourished, Well-developed, appearing stated age 2.Eyes: PERRL, no conjunctival injection, and symmetrical lids. 3.ENT: Atraumatic external nose and ears. Moist MM. Neck: Symmetric, trachea midline, No thyromegaly. 4.CVS: +S1/S2, No murmurs or gallops. Peripheral pulses 2+ and equal in all extremities. Brisk capillary refill in all extremities. 5.RESP: Unlabored respiratory effort. Clear to auscultation bilaterally. No wheezes rales or rhonchi 6.GI: Soft, Nontender/Nondistended, No hepatosplenomegaly. No guarding or rebound. 7.MSK: Normocephalic/Atraumatic, Extremities w/o deformity or ttp No cyanosis or clubbing, Normal movement of all extremities 8.Skin: Warm, Dry. No rashes or lesions. 9.Neuro: safety companion II-XII grossly intact. Sensation grossly intact, no focal neurologic deficits. 10.Psych: (AAO) x3. Appropriate mood and affect Course Vital Signs Temperature 37.1 C 05/25/18 01:05 Pulse 72 05/25/18 01:05 Respiratory Rate 16 05/25/18 01:05 Pulse Oximetry 96 05/25/18 01:05 Temperature 37.1 C 05/25/18 01:05 Temperature Source Skin 05/25/18 01:05 Pulse 72 05/25/18 01:05 Respiratory Rate 16 05/25/18 01:05 Pulse Oximetry 96 05/25/18 01:05 Pain Level 0 05/25/18 01:05
[2018-05-25 01:24] LABS: Abs Immature Grans 0.01 k/cumm (0.0-0.09); Absolute Basophil Count 0.05 k/cumm (0.0-0.2); Absolute Eosinophil Count 0.13 k/cumm (0.0-0.7); Absolute Lymphocyte Count 1.97 k/cumm (1.2-3.4); Absolute Monocyte Count 0.59 k/cumm (0.11-0.7); Absolute Neutrophil Count 4.68 k/cumm (1.2-6.7); Basophils % 0.7; Eosinophils % 1.7; HCT 44.8 % (40.0-50.0); HGB 15.8 g/dL (13.5-17.5); Immature Grans % 0.1; Lymphocytes % 26.5; Mean Corp. HGB Concentration 35.3 g/dL (32.0-36.0); Mean Corpuscular Hemoglobin 29.4 pg (27.0-33.0); Mean Corpuscular Volume 83.4 fL (80-95); Mean Platelet Volume 11.7 fL (8.0-11.0); Monocytes % 7.9; Neutrophils % 63.1; Platelet Count 206 x1000/uL (130-400); RBC 5.37 m/cumm (4.50-6.00); RBC Distribution Width 12.6 % (11.8-14.1); White Blood Cell Count 7.43 k/cumm (4.4-10.8)
--- NOTE | 2018-05-25 01:25 | DI.RAD_ITS ---
SYMPTOM/DIAGNOSIS: CHEST PAIN.H/O STENT PORTABLE AP CHEST: Comparison is made with 05/21/18. Heart size and pulmonary vasculature are within normal limits. There is again seen elevation of the right hemidiaphragm. The lungs remain clear. No effusions or pneumothoraces are identified. IMPRESSION: No acute pulmonary process.
--- NOTE | 2018-05-25 01:25 | ED.GENADUL_ITS ---
Discharge Plan Disposition Patient Disposition: HOME Condition: Good Discharge Details Chief Complaint: Chest Pain Clinical Impression: Chest tightness, Anxiety Reason For Visit: SMITA Primary Care Provider: Marly Correa ED Provider: Deshaun Roy Home Meds and New Rx's Prescriptions: No Action hydroxyzine HCl 25 mg tablet 25 - 50 mg PO QID PRN (Reason: anxiety) Qty: 30 RF: 0 levothyroxine 100 mcg capsule 100 mcg PO DAILY Qty: 90 RF: 3 fluticasone 50 mcg/actuation spray,suspension 50 mcg NS DAILY PRN (Reason: allergy symptoms) Qty: 1 RF: 1 cetirizine 10 mg tablet 10 mg PO DAILY Qty: 90 RF: 1 atorvastatin [Lipitor] 40 mg tablet 40 mg PO DAILY RF: 0 clopidogrel [Plavix] 75 mg tablet 75 mg PO DAILY RF: 0 aspirin [Adult Low Dose Aspirin] 81 mg tablet,delayed release (DR/EC) 81 mg PO DAILY RF: 0 lisinopril 10 mg tablet 10 mg PO DAILY RF: 0 isosorbide mononitrate 30 mg tablet extended release 24 hr 30 mg PO DAILY RF: 0 nitroglycerin 0.4 mg tablet, sublingual 0.4 mg SL Q5-15M PRNRF: 0 sertraline 25 mg tablet 25 mg PO DAILY RF: 0 Discharge Instructions Instructions: Anxiety (ED) Additional Instructions: Please follow-up closely with your primary care provider today. Please continue to take your home medications as prescribed. If you notice any worsening of your symptoms, or any new symptoms such as vomiting, diarrhea, fever, chills, s hortness of breath, chest pain, numbness, weakness, or fainting , please return immediately to the emergency department for reevaluation. Please follow up with your primary care provider as soon as possible for reassessment and reevaluation. As always, it was a pleasure participating in your medical care today. Referrals: Marly Correa MD [Primary Care Provider] - Medical Decision Making This is a pleasant 52-year-old male with a past medical history of hypothyroidism, and coronary artery disease for which he has a cardiac stent which he got 2 weeks ago. He presents today for evaluation of anxiety attack and mild chest pressure. The patient has a history of anxiety, and has had symptoms like this in the past with his episodes of anxiety, however of note his N STEMI that he had 2 weeks ago was without chest pain but rather was with shortness of breath and fatigue. Tonight the patient had his episode of chest pain anxiety-like episode while he was watching a movie about a father dying. He had sensation of warmth and tightness in his chest. When EMS arrived he began feeling better, per protocol was given aspirin and nitroglycerin. By the time he arrived to the ER he had complete resolution of his symptoms. He does not feel that the nitro changed his symptomatology at all. He has been out of his lorazepam from [facility] and is scheduled to get it refilled with his primary care provider tomorrow morning. Patient does not feel that this feels similar to his previous NSTEMI episode, and instead more like an anxiety episode. On his last visit to the emergency department the patient did have a mild bump in his troponin, he was eventually sent to the [facility], with the observed him, give him a long-acting nitro, the discharge and for close follow-up with his PCP. Currently the patient's vital signs are very reassuring, he shows no significant abnormalities, his chest pain is completely resolved, signs and symptoms appear clinically inconsistent with ACS. EKG shows the chronic findings from his previous EKGs, no acute changes. We will evaluate for cardiac etiologies, and reassess 4:30 AM Patient's repeat EKG, and repeat serial troponin are both normal and within normal limits. No acute changes on EKG. Patient still feels asymptomatic at this time. I feel his signs and symptoms are clinically inconsistent with ACS, and consistent with anxiety attack. Patient does agree with this. Patient does have clear cardiac history, but with symptoms that are inconsistent with this I do feel that he can be safely discharged home. With a normal troponin, normal serial EKGs, and no signs or symptoms that resemble his previous visits and symptomatology where there was an acute cardiac issue, we will discharge him home with close follow-up in the next 12 hours with his primary care provider. We discussed red flags for which to immediately return the patient understands. I have extensively reviewed the treatment plan and discharge instructions with the patient. I have addressed all patient concerns at this time. The patient was made aware of what symptoms to monitor for that would warrant a return to the emergency department. Discussed the plan with the patient, they demonstrate verbal understanding and agreement with our assessment and plan at this time. EKG 1: 09 AM Rate 64, sinus rhythm, intervals normal, Q wave in lead III and aVF, [address] elevation in V2 and V3, no ST depression, inverted T wave in lead III. No other significant abnormality, findings consistent with prior EKG from 05/21/18 EKG 3: 48 Rate 56, intervals normal, sinus bradycardia, Q wave in lead III and aVF, [address] elevation in V2 and V3, no ST depression, inverted T wave in lead III. No other significant abnormality, findings consistent with prior EKG COMPARISON: CR XR PORTABLE CHEST AP 05/21/2018 3:33 AM FINDINGS: Lungs: Mild chronic elevation of the right hemidiaphragm, no significant change. No consolidation. Pleural space: Unremarkable. No pleural effusion. No pneumothorax. Heart/Mediastinum: Unremarkable. No cardiomegaly. Bones/joints: Unremarkable. IMPRESSION: No acute findings. Dictated and Authenticated by: Shellie Delgadillo MD. HPI General Date/Time Provider Initiated Documentation: 05/25/18 01:14 . HPI Narrative: This is a 52-year-old male with a past medical history of hypothyroidism, and coronary artery disease with a stent placed in the LAD within the past week, who presents today for evaluation of chest pressure and tightness. Tonight the patient was watching a movie about a father dying when he developed some chest tightness, felt very anxious and nervous, had a warm sensation in his chest. The patient felt the most relief of his symptoms when the EMS arrived, he states that this is how his anxiety attacks have felt in the past. He was given 325 aspirin and nitroglycerin, and had questionable improvement of his symptoms with that, however by the time he arrived to the ER he had complete resolution of his symptoms. He denies any arm neck or shoulder pain. He denies any vomiting or diarrhea. The patient states that the symptoms are inconsistent with the symptoms that he had when he had his last NSTEMI as that was primarily with progressive shortness of breath. Also of note the patient did run out of his lorazepam today, and it was not able to take any when the symptoms first occurred which she would normally do. Historically, the patient had an NSTEMI roughly 2-1/2 weeks ago, where he received a stent at the [facility]. He was then back in the emergency department slightly less than a week ago where he had some mild chest discomfort and had a very small bump in his troponin. He was eventually transferred to the [facility] again where they did no additional interventional management, he was started on a long-acting nitro, and then discharged with follow-up with his PCP which is scheduled for tomorrow. Patient has been taking his Plavix as directed. He denies any other complaints. He denies any pleuritic chest pain. He denies any numbness tingling or weakness. Related Data Home Medications Medication Instructions Recorded Confirmed cetirizine 10 mg tablet 10 mg PO DAILY #90 tab-cap 12/15/17 05/25/18 fluticasone 50 mcg/actuation nasal 50 mcg NS DAILY PRN #1 inh 12/15/17 05/25/18 spray,suspension levothyroxine 100 mcg capsule 100 mcg PO DAILY #90 cap 12/15/17 05/25/18 hydroxyzine HCl 25 mg tablet 25 - 50 mg PO QID PRN #30 tab-cap 05/17/18 05/25/18 atorvastatin 40 mg tablet 40 mg PO DAILY 05/19/18 05/25/18 aspirin 81 mg tablet,delayed 81 mg PO DAILY 05/20/18 05/25/18 release clopidogrel 75 mg tablet 75 mg PO DAILY 05/20/18 05/25/18 lisinopril 10 mg tablet 10 mg PO DAILY 05/20/18 05/25/18 isosorbide mononitrate ER 30 mg 30 mg PO DAILY 05/24/18 05/25/18 tablet,extended release 24 hr nitroglycerin 0.4 mg sublingual 0.4 mg SL Q5-15M PRN 05/24/18 05/25/18 tablet sertraline 25 mg tablet 25 mg PO DAILY 05/24/18 05/25/18 Previous Rx's Medication Instructions Recorded cetirizine 10 mg tablet 10 mg PO DAILY #90 tab-cap 12/15/17 fluticasone 50 mcg/actuation nasal 50 mcg NS DAILY PRN #1 inh 12/15/17 spray,suspension levothyroxine 100 mcg capsule 100 mcg PO DAILY #90 cap 12/15/17 hydroxyzine HCl 25 mg tablet 25 - 50 mg PO QID PRN #30 tab-cap 05/17/18 Allergies Allergy/AdvReac Type Severity Reaction Status Date / Time No Known Drug Allergies Allergy Verified 05/25/18 01:16 seasonal allergy Allergy nasal Uncoded 05/25/18 01:16 congestion, blood shot eyes to ragweed General Stated Complaint: Chest Pain KAYLA: 3 Review of Systems Review of Systems All systems reviewed & are unremarkable except as noted in HPI and below PFSH Medical History Radiculopathy, 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) Insomnia (Chronic 08/31/14) Anxiety (Chronic 08/31/14) Allergic rhinitis (Chronic 03/26/16) NSTEMI (non-ST elevated myocardial infarction) (Acute) Hypothyroidism (Inactive) Social History household members: spouse and children lives independently: Yes number of children: 3 current occupational status: employed 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 3.ENT: Atraumatic external nose and ears. Moist MM. Neck: Symmetric, trachea midline, No thyromegaly. 4.CVS: +S1/S2, No murmurs or gallops. Peripheral pulses 2+ and equal in all extremities. Brisk capillary refill in all extremities. 5.RESP: Unlabored respiratory effort. Clear to auscultation bilaterally. No wheezes rales or rhonchi 6.GI: Soft, Nontender/Nondistended, No hepatosplenomegaly. No guarding or rebound. 7.MSK: Normocephalic/Atraumatic, Extremities w/o deformity or ttp No cyanosis or clubbing, Normal movement of all extremities 8.Skin: Warm, Dry. No rashes or lesions. 9.Neuro: wire annealer II-XII grossly intact. Sensation grossly intact, no focal jack rologic deficits. 10.Psych: (AAO) x3. Appropriate mood and affect Course Vital Signs Temperature 37.1 C 05/25/18 01:05 Pulse 72 05/25/18 01:05 Respiratory Rate 16 05/25/18 01:05 Pulse Oximetry 96 05/25/18 01:05 Temperature 37.1 C 05/25/18 01:05 Temperature Source Skin 05/25/18 01:05 Pulse 72 05/25/18 01:05 Respiratory Rate 16 05/25/18 01:05 Pulse Oximetry 96 05/25/18 01:05 Pain Level 0 05/25/18 01:05
[2018-05-25 01:39] LABS: ALT 91 U/L (12-78); AST 46 U/L (15-37); Alkaline Phosphatase 67 U/L (46-116); Anion Gap 8.8 mmol/L (3-11); BUN 17 mg/dL (7-18); Bilirubin, Total 0.8 mg/dL (0.2-1.0); CO2 29.2 mmol/L (21.0-32.0); CREATININE 1.09 mg/dL (0.70-1.30); Calcium 8.7 mg/dL (8.5-10.1); Chloride 101 mmol/L (98-107); Glucose 112 mg/dL (70-100); Potassium 4.2 mmol/L (3.5-5.1); Sodium 139 mmol/L (136-145); Total Protein 8.3 g/dL (6.4-8.2); Troponin I < 0.02 ng/mL (0.00-0.06)
[2018-05-25 01:48] LABS: INR 1.1 (0.9-1.1); PTT Activated 26.5 sec (21.0-31.4); Prothrombin Time 10.9 sec (9.3-11.0)
--- NOTE | 2018-05-25 01:51 | DI.VRAD_ITS ---
EXAM: XR Chest, 1 View EXAM DATE/TIME: 05/25/2018 1:15 AM CLINICAL HISTORY: 52 years old, male; Pain; Chest pain; Type not specified; Prior surgery; Surgery date: <1 month; Surgery type: Stent placed 2 weeks ago TECHNIQUE: XR of the chest, 1 view. COMPARISON: CR XR PORTABLE CHEST AP 05/21/2018 3:33 AM FINDINGS: Lungs: Mild chronic elevation of the right hemidiaphragm, no significant change. No consolidation. Pleural space: Unremarkable. No pleural effusion. No pneumothorax. Heart/Mediastinum: Unremarkable. No cardiomegaly. Bones/joints: Unremarkable. IMPRESSION: No acute findings. Dictated and Authenticated by: Shellie Delgadillo MD. Ordering:ARPIT Meade MD
[2018-05-25 04:17] LABS: Troponin I < 0.02 ng/mL (0.00-0.06)
[2018-05-25] MEDS: LORazepam 0.5 MG TAB PO (04:28)
== END 2018-05-25 04:34 | disposition home or self-care (01) ==
LOC: ER 04:37
PROVIDERS: Emergency Provider Student in an Organized Health Care Education/Training Program; PCP Internal Medicine
DX: R07.89 Other chest pain (principal); F41.9 Anxiety disorder, unspecified; I25.10 Atherosclerotic heart disease of native coronary artery without angina pectoris; Z95.5 Presence of coronary angioplasty implant and graft
CPT/HCPCS: 36415; 80053; 93005; 99285; 71045; 84484; 85025; 85610; 85730; 93010

== ENCOUNTER 2018-05-26 14:04 | Outpatient (RCR) | payer BC, SELFPAY | END 2018-05-27 23:59 | disposition home or self-care (01) | LOC: CR 14:04 | PROVIDERS: PCP Internal Medicine; Visit Provider Family Medicine | DX: I25.2 Old myocardial infarction (principal); Z51.89 Encounter for other specified aftercare ==

== ENCOUNTER 2018-06-25 12:53 | Outpatient (RCR) | payer BC, SELFPAY | END 2018-06-27 23:59 | disposition home or self-care (01) | LOC: CR 12:53 | PROVIDERS: PCP Internal Medicine; Visit Provider Family Medicine | DX: I25.2 Old myocardial infarction (principal); Z51.89 Encounter for other specified aftercare | CPT/HCPCS: S9472 ==

== ENCOUNTER 2018-07-05 07:00 | Outpatient (RCR) | payer BC, SELFPAY | END 2018-07-27 23:59 | disposition home or self-care (01) | LOC: CR 07:00 | PROVIDERS: PCP Internal Medicine; Visit Provider Family Medicine | DX: I25.2 Old myocardial infarction (principal); Z51.89 Encounter for other specified aftercare | CPT/HCPCS: S9472 ==

== ENCOUNTER 2018-07-28 03:37 | Outpatient (RCR) | payer BC, SELFPAY | END 2018-08-27 23:59 | disposition home or self-care (01) | LOC: CR 03:37 | PROVIDERS: PCP Internal Medicine; Visit Provider Family Medicine | DX: I25.2 Old myocardial infarction (principal); Z51.89 Encounter for other specified aftercare ==

== ENCOUNTER 2018-08-20 08:15 | Outpatient (CLI) | payer BC, SELFPAY ==
--- NOTE | 2018-08-20 08:12 | DI.RAD_ITS ---
SYMPTOMS/DIAGNOSIS: LT KNEE PAIN LEFT KNEE: The joint spaces are well maintained. No joint effusion is seen. There is some soft tissue swelling anterior to the patella and patellar tendon. A spur is seen at the anterior aspect of the patella. IMPRESSION: Anterior soft tissue swelling. No bone or joint space abnormality.
== END 2018-08-20 08:35 ==
PROVIDERS: PCP Internal Medicine; Visit Provider Physician Assistant
DX: M25.562 Pain in left knee (principal); M79.89 Other specified soft tissue disorders; M76.52 Patellar tendinitis, left knee
CPT/HCPCS: 73562

== ENCOUNTER 2018-11-30 06:39 | Outpatient (CLI) | payer BC, SELFPAY ==
[2018-11-30 08:29] LABS: Calculated LDL 73 mg/dL; Cholesterol 145 mg/dL (50-200); HDL Cholesterol 59 mg/dL (40-60); Triglyceride 67 mg/dL (30-150)
== END 2018-11-30 06:59 ==
PROVIDERS: PCP Internal Medicine; Visit Provider Internal Medicine
DX: E03.9 Hypothyroidism, unspecified (principal); I25.10 Atherosclerotic heart disease of native coronary artery without angina pectoris
CPT/HCPCS: 36415; 80061; 84443

== ENCOUNTER 2019-03-01 16:55 | Outpatient (CLI) | payer BC, SELFPAY ==
[2019-03-01 18:24] LABS: Calculated LDL 74 mg/dL; Cholesterol 170 mg/dL (<200); HDL Cholesterol 76 mg/dL (40-60); TSH (W/Ref FT4) 3.35 uIU/mL (0.36-3.74); Triglyceride 102 mg/dL (<150)
[2019-03-01 19:07] LABS: Troponin I < 0.05 ng/Ml (<0.06)
== END 2019-03-01 17:15 ==
PROVIDERS: PCP Internal Medicine; Visit Provider Internal Medicine
DX: I25.10 Atherosclerotic heart disease of native coronary artery without angina pectoris (principal); R07.9 Chest pain, unspecified; E78.00 Pure hypercholesterolemia, unspecified; E03.9 Hypothyroidism, unspecified
CPT/HCPCS: 36415; 80061; 84443; 84484

== ENCOUNTER 2020-05-22 02:26 | Outpatient (CLI) | payer BC, SELFPAY ==
[2020-05-22 09:12] LABS: Anion Gap 7.6 mmol/L (3-11); BUN 21 mg/dL (7-18); CO2 30.4 mmol/L (21.0-32.0); CREATININE 0.9 mg/dL (0.70-1.30); Calcium 8.6 mg/dL (8.5-10.1); Calculated LDL 40 mg/dL (<100); Chloride 105 mmol/L (98-107); Cholesterol 91 mg/dL (<200); Glucose 85 mg/dL (74-106); HDL Cholesterol 43 mg/dL (40-60); Potassium 4.3 mmol/L (3.5-5.1); Sodium 143 mmol/L (136-145); TSH (W/Ref FT4) 3.95 uIU/mL (0.36-3.74); Triglyceride 44 mg/dL (<150)
[2020-05-22 09:30] LABS: FREE T4 0.89 ng/dL (0.76-1.46)
[2020-05-22 18:07] LABS: PSA, Screening 1.9 ng/mL (0.0-3.5)
[2020-05-24 04:38] LABS: Vitamin D 25 Total 14.8 ng/ml (30-100)
== END 2020-05-22 02:27 | disposition home or self-care (01) ==
LOC: LBO 02:26
PROVIDERS: PCP Internal Medicine; Visit Provider Internal Medicine
DX: I10 Essential (primary) hypertension (principal); E03.9 Hypothyroidism, unspecified; E78.00 Pure hypercholesterolemia, unspecified; E55.9 Vitamin D deficiency, unspecified; Z12.5 Encounter for screening for malignant neoplasm of prostate; Z80.42 Family history of malignant neoplasm of prostate
CPT/HCPCS: 36415; 80048; 80061; 82306; 84153; 84439; 84443

== ENCOUNTER 2020-05-26 16:01 | Emergency (ER) | payer BC, SELFPAY ==
[2020-05-26] VITALS (13 sets, daily range): BP systolic 101–111; BP diastolic 55–60; PULSE 46–57; RESP 13–24; O2SAT 93–95
--- NOTE | 2020-05-26 16:00 | RT.EKG_ITS ---
APPROVED REPORT Exam: Resting ECG Patient Location: E HR:47 bpm ECG Measurements Heart Rate 47 AXIS MD 168 P 49 QRSd 89 QRS 13 QT 460 T 15 QTc 405 Conclusion Sinus bradycardia...rate< 60 Probable left atrial enlargement...P >50mS, <-0.10mV V1
--- NOTE | 2020-05-26 16:09 | ED.GENADUL_ITS ---
Discharge Plan Disposition Patient Disposition: HOME Condition: Stable Discharge Details Clinical Impression: Left hamstring muscle strain, Syncope, Anemia, normocytic normochromic Primary Care Provider: Marly Correa ED Provider: Francisca Hernandez Home Meds and New Rx's Prescriptions: Continued levothyroxine 112 mcg capsule 112 mcg PO DAILY Qty: 90 RF: 3 clonazepam 0.5 mg tablet 0.5 mg PO BID MDD 1 mg PRN (Reason: anxiety) Qty: 30 RF: 0 nitroglycerin 0.4 mg tablet, sublingual 0.4 mg SL Q5-15M PRN (Reason: chest pain) Qty: 30 RF: 0 lisinopril 10 mg tablet 10 mg PO BID Qty: 180 RF: 0 cetirizine 10 mg tablet 10 mg PO DAILY PRN (Reason: allergy symptoms) Qty: 90 RF: 1 aspirin [Adult Low Dose Aspirin] 81 mg tablet,delayed release (DR/EC) 81 mg PO DAILY RF: 0 fluticasone propionate 50 mcg/actuation spray,suspension 50 mcg NS DAILY PRN (Reason: allergy symptoms) Qty: 1 RF: 2 trazodone 50 mg tablet See Rx Instructions PO QHS PRN (Reason: sleep) Qty: 60 RF: 2 atorvastatin [Lipitor] 40 mg tablet 40 mg PO DAILY Qty: 90 RF: 3 sertraline 100 mg tablet 50 mg PO DAILY RF: 0 bupropion HCl [Wellbutrin XL] 150 mg tablet extended release 24 hr 50 mg PO QAM RF: 0 Discharge Instructions Instructions: Muscle Strain (ED), Syncope (ED), Anemia (ED) Additional Instructions: Please follow up with PCP in 3 weeks as previously scheduled. Please follow-up sooner if any worsening or you may always return to the ED. Today your cardiac labs are within normal limits. You are slightly anemic hemoglobin and hematocrit are slightly low. Please discuss this with your primary care provider. Please return to the ED for any worsening chest pain, additional syncopal episodes. Potassium was 3.4 which is slightly low you were given 40 mEq p.o. potassium today. Rest, ice, elevation of your left leg. Slight stretching may help. Please take Tylenol or Ibuprofen with food every 4-6 hours as needed for pain and swelling. Referrals: Marly Correa MD [Primary Care Provider] - Medical Decision Making 54-year-old male presents to the ER chief complaint of left posterior thigh pain and gluteal pain status post a skiing accident approximately 1 hour ago. Patient states that he skied into some deep snow got his ski stuck, his binding did not release he heard a pop and had pain to his posterior thigh. He was able to get himself out of the snow, ski down the rest of the way, and is ambulatory upon arrival. Upon arriving into the ER [facility] patient states that he stepped out of the car felt very dizzy, blacked out and had a syncopal episode. He denies hitting his head, he is alert and oriented x4 at this time. He denies any chest pain or shortness of breath at this time. He states he has some lower back pain which is at baseline for him and his posterior thigh pain. Upon initial examination his heart rate is in the 40s and that is his normal baseline for him. He states that they just increased his dose for 2 of his blood pressure medications. Patient has a past medical history of hypertension, hyperlipidemia, coronary artery disease, hypothyroidism, NSTEMI, anxiety. EKG was reviewed by Dr. Ravi Gilliland MD ER attending, please see his official report. Old EKG was available for review. Sinus bradycardia at rate of 47, no ST elevation no ectopy. Work-up ordered including cardiac work-up for syncopal episode in [facility]. I do suspect strongly this is a vasovagal response. I did discuss possible torn or sprained hamstring with patient who verbalizes understanding. Differential diagnosis includes not limited to hamstring strain, CAD, orthostatic hypotension related to blood pressure medication changes, vasovagal response, Initial labs are largely within normal limits initial troponin is within normal limits, his testing is slightly decreased at 3.4, he is slightly anemic with a hemoglobin of 12.0 and hematocrit of 36.6 which is decreased from 2019. Patient states that he stopped eating red meat in 2019. He does have a primary care provider appointment in 3 weeks and I did encourage him to follow-up regarding this with EP. Patient was given 40 mEq of potassium p.o. here in the department. Patient was alert and oriented, at this time I do feel it is reasonable to discharge patient without the second serial troponin due to no ch est pain or shortness of breath. Strict return instructions were discussed with patient. This text was generated using [employer] dictation system, please disregard any oddities of phrase or misspellings. HPI General Mode of arrival: ambulatory . Date/Time Provider Initiated Documentation: 05/26/20 16:03 . Limitations to Documentation: no limitations . Information obtained by: patient . HPI Narrative: 54-year-old male presents to the ER chief complaint of left posterior thigh pain and gluteal pain status post a skiing accident approximately 1 hour ago. Patient states that he skied into some deep snow got his ski stuck, his binding did not release he heard a pop and had pain to his posterior thigh. He was able to get himself out of the snow, ski down the rest of the way, and is ambulatory upon arrival. Upon arriving into the ER parking lot patient states that he stepped out of the car felt very dizzy, blacked out and had a syncopal episode. He denies hitting his head, he is alert and oriented x4 at this time. He denies any chest pain or shortness of breath at this time. He states he has some lower back pain which is at baseline for him and his posterior thigh pain. Upon initial examination his heart rate is in the 40s and that is his normal baseline for him. He states that they just increased his dose for 2 of his blood pressure medications. Souleymane jess has a past medical history of hypertension, hyperlipidemia, coronary artery disease, hypothyroidism, NSTEMI, anxiety. Related Data Home Medications Medication Instructions Recorded Confirmed aspirin 81 mg tablet,delayed 81 mg PO DAILY 05/20/18 05/26/20 release cetirizine 10 mg tablet 10 mg PO DAILY PRN #90 tab-cap 03/02/19 05/26/20 fluticasone propionate 50 50 mcg NS DAILY PRN #1 inh 09/09/19 05/26/20 mcg/actuation nasal spray,suspension levothyroxine 112 mcg capsule 112 mcg PO DAILY #90 cap 11/15/19 05/26/20 trazodone 50 mg tablet See Rx Instructions PO QHS PRN #60 02/15/20 05/26/20 tab clonazepam 0.5 mg tablet 0.5 mg PO BID PRN #30 tab MDD 1 mg 04/06/20 05/26/20 lisinopril 10 mg tablet 10 mg PO BID #180 tab 04/06/20 05/26/20 nitroglycerin 0.4 mg sublingual 0.4 mg SL Q5-15M PRN #30 tab 04/06/20 05/26/20 tablet atorvastatin 40 mg tablet 40 mg PO DAILY #90 tab 05/16/20 05/26/20 bupropion HCl [Wellbutrin XL] 50 mg PO QAM 05/26/20 05/26/20 sertraline 50 mg PO DAILY 05/26/20 05/26/20 Previous Rx's Medication Instructions Recorded cetirizine 10 mg tablet 10 mg PO DAILY PRN #90 tab-cap 03/02/19 fluticasone propionate 50 50 mcg NS DAILY PRN #1 inh 09/09/19 mcg/actuation nasal spray,suspension levothyroxine 112 mcg capsule 112 mcg PO DAILY #90 cap 11/15/19 trazodone 50 mg tablet See Rx Instructions PO QHS PRN #60 02/15/20 tab clonazepam 0.5 mg tablet 0.5 mg PO BID PRN #30 tab MDD 1 mg 04/06/20 lisinopril 10 mg tablet 10 mg PO BID #180 tab 04/06/20 nitroglycerin 0.4 mg sublingual 0.4 mg SL Q5-15M PRN #30 tab 04/06/20 tablet atorvastatin 40 mg tablet 40 mg PO DAILY #90 tab 05/16/20 Allergies Allergy/AdvReac Type Severity Reaction Status Date / Time No Known Drug Allergies Allergy Verified 05/26/20 16:12 seasonal allergy Allergy nasal Uncoded 05/26/20 16:12 congestion, blood shot eyes to ragweed General KAYLA: 3 Review of Systems Narrative: Constitutional: Negative for weight loss, alert and oriented, well groomed, normal body habitus, appears comfortable. HEENT: Denies headaches, blurry vision, nasal discharge, sore throat, trouble swallowing. Chest: Denies chest pain, palpitations, irregular rhythm. Respiratory: Denies Shortness of breath, cough, hemoptysis. GI: Denies abdominal pain, nausea, vomiting, diarrhea, constipation. : Denies dysuria, hematuria, flank pain, rectal bleeding. Neuro: Denies blurry vision, weakness, or facial numbness. Hematologic: Denies easy bruising, intolerance to heat or cold, hair loss. 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) Surgical History colonoscopy (03/20/17) History of adenoidectomy History of coronary artery stent placement History of tonsillectomy S/P cardiac cath (05/19/18) drug-eluting stent distal vessel [facility] Tonsillectomy and adenoidectomy Family History Father Dysplastic polyp of colon Thyroid condition Prostate cancer Grandfather Neoplasm Maternal Uncle Myocardial infarction maternal uncle PA 49 yo Sister Dysplastic polyp of colon Brother Dysplastic polyp of colon Social History Smoking/Tobacco Use Status: Former Tobacco Use Smoking risk assessment performed?: Yes Alcohol Intake: current Alcohol Intake frequency: 0-2 drinks per day Alcohol type: beer Drug use: Never Substance use type: does not use Household members: spouse and children Housing: house Number of Children: 3 Communication Needs: None Do you need help understanding health information?: Never current occupation: Teacher [employer] Current gender identity: male What is your relationship status?: Panel score (0-1 are the most socially isolated patients): 1 What type of physical activity do you participate in: regular exercise, other Details: cardiac rehab and running Duration: 45-60 minutes/day Frequency: 3-4 times per week Seatbelt use: always Drive intox or ride w/intox 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 Appears stated age. Normal body habitus. Head: Normocephalic, no trauma. Eyes: Pupils PERRLA, Red reflex noted, EOM's intact. Eyelids symmetrical without lesions, discharge, or swelling. ENT: Bilateral TM's WNL, External ear normal to inspection, no mastoid TTP, swelling, or erythema, Nasal turbinates WNL, no nasal discharge. Normal dentition, Posterior pharynx WNL, no exudate. Chest: Heart rate is 47 mildly bradycardic sinus rhythm. He states that this is normal for him. Normal S1, S2, distal pulses intact. Resp: Lungs clear to auscultation bilaterally, no wheezes, rales, or rhonchi. Musculoskeletal: Normal gait, 5/5 strength to all four extremities. No palpable muscle bulging to his posterior thigh, no muscle spasm nothing to indicate a significantly torn hamstring. Intact passive range of motion, intact active range of motion. Pelvis is stable, no hip tenderness with palpation. No neck or midline back pain. Skin: No suspicious rashes or lesions. Capillary refill less than 2 sec. Neurologic: Cranial nerves II-XII intact. Alert and oriented x 3. DTR's intact. Hematologic/Lymphatic: No ecchymosis, no lymphadenopathy.
[2020-05-26 16:36] LABS: Abs Immature Grans 0.02 10^3/uL (0.0-0.06); Absolute Basophil Count 0.04 10^3/uL (0.0-0.2); Absolute Eosinophil Count 0.06 10^3/uL (0.0-0.7); Absolute Lymphocyte Count 1.51 10^3/uL (1.2-3.4); Absolute Monocyte Count 0.39 10^3/uL (0.1-0.8); Absolute Neutrophil Count 5.14 10^3/uL (1.2-6.7); Basophils % 0.6; Eosinophils % 0.8; HCT 36.6 % (40.0-50.0); Immature Grans % 0.3; Lymphocytes % 21.1; MCH 30.4 pg (27.0-33.0); MCHC 32.8 % (32.0-36.0); MCV 92.7 fL (80-95); MPV 13.2 fL (8.0-11.0); Monocytes % 5.4; Neutrophils % 71.8; Nucleated RBC 0 %; Platelet Count 150 10^3/uL (130-400); RBC 3.95 10^6/uL (4.36-5.78); RDW 11.9 % (11.8-14.1); RDW-SD 41.2 fL; WBC 7.16 10^3/uL (4.4-10.8)
[2020-05-26] MEDS: Acetaminophen 500 MG TAB PO (16:41)
[2020-05-26] MEDS: Lidocaine 5% Patch 1 PATCH TP (16:41)
[2020-05-26 16:48] LABS: ALT 36 U/L (16-63); AST 24 U/L (15-37); Albumin 3.9 g/dL (3.4-5.0); Alkaline Phosphatase 61 U/L (46-116); Anion Gap 6.6 mmol/L (3-11); BUN 22 mg/dL (7-18); Bilirubin, Total 0.5 mg/dL (0.2-1.0); CO2 30.4 mmol/L (21.0-32.0); CREATININE 1.1 mg/dL (0.70-1.30); Calcium 8.8 mg/dL (8.5-10.1); Chloride 105 mmol/L (98-107); Glucose 106 mg/dL (74-106); Magnesium 2.1 mg/dL (1.8-2.4); Potassium 3.4 mmol/L (3.5-5.1); Sodium 142 mmol/L (136-145); Total Protein 6.8 g/dL (6.4-8.2)
[2020-05-26 16:49] LABS: Troponin I < 0.05 ng/mL (<0.06)
[2020-05-26] MEDS: Potassium Chloride 20 MEQ TABCR 40 MEQ PO (17:05)
== END 2020-05-26 17:27 | disposition home or self-care (01) ==
PROVIDERS: Emergency Provider Registered Nurse Emergency; PCP Internal Medicine
DX: S76.312A Strain of muscle, fascia and tendon of the posterior muscle group at thigh level, left thigh, initial encounter (principal); X50.1XXA Overexertion from prolonged static or awkward postures, initial encounter; Y93.23 Activity, snow (alpine) (downhill) skiing, snowboarding, sledding, tobogganing and snow tubing; R55 Syncope and collapse; D64.89 Other specified anemias; E87.6 Hypokalemia
CPT/HCPCS: 80053; 93005; 99284; 83735; 84484; 85025; 93010; 99283

== ENCOUNTER 2020-12-28 02:07 | Outpatient (CLI) | payer BC, SELFPAY ==
[2020-12-28 10:53] LABS: HCT 45.5 % (40.0-50.0); HGB 14.8 g/dL (13.5-17.5); MCH 29.3 pg (27.0-33.0); MCHC 32.5 % (32.0-36.0); MCV 90.1 fL (80-95); MPV 12.7 fL (8.0-11.0); Platelet Count 184 10^3/uL (130-400); RBC 5.05 10^6/uL (4.36-5.78); RDW 12.5 % (11.8-14.1); RDW-SD 41.1 fL; WBC 6.61 10^3/uL (4.4-10.8)
[2020-12-28 12:26] LABS: ALT 39 U/L (16-63); AST 25 U/L (15-37); Albumin 4.6 g/dL (3.4-5.0); Alkaline Phosphatase 58 U/L (46-116); Anion Gap 6.4 mmol/L (3-11); BUN 20 mg/dL (7-18); Bilirubin, Total 1.1 mg/dL (0.2-1.0); CO2 33.6 mmol/L (21.0-32.0); CREATININE 1.1 mg/dL (0.70-1.30); Calcium 9.7 mg/dL (8.5-10.1); Calculated LDL 54 mg/dL (<100); Chloride 102 mmol/L (98-107); Cholesterol 116 mg/dL (<200); Glucose 89 mg/dL (74-106); HDL Cholesterol 52 mg/dL (40-60); Potassium 5.4 mmol/L (3.5-5.1); Sodium 142 mmol/L (136-145); TSH (W/Ref FT4) 5.23 uIU/mL (0.36-3.74); Total Protein 7.6 g/dL (6.4-8.2); Triglyceride 53 mg/dL (<150)
[2020-12-28 12:47] LABS: FREE T4 0.92 ng/dL (0.76-1.46)
[2020-12-28 17:48] LABS: PSA, Screening 1.7 ng/mL (0.0-3.5)
== END 2020-12-28 02:08 | disposition home or self-care (01) ==
LOC: LBO 02:08
PROVIDERS: PCP Internal Medicine; Visit Provider Nurse Practitioner
DX: I10 Essential (primary) hypertension (principal); E78.2 Mixed hyperlipidemia; D64.9 Anemia, unspecified; I25.10 Atherosclerotic heart disease of native coronary artery without angina pectoris; Z12.5 Encounter for screening for malignant neoplasm of prostate; Z80.42 Family history of malignant neoplasm of prostate
CPT/HCPCS: 36415; 80053; 80061; 84153; 85027; 84439; 84443

== ENCOUNTER 2022-03-28 03:11 | Outpatient (CLI) | payer BC, SELFPAY ==
[2022-03-28 08:20] LABS: Abs Immature Grans 0.01 10^3/uL (0.0-0.06); Absolute Basophil Count 0.07 10^3/uL (0.0-0.2); Absolute Eosinophil Count 0.17 10^3/uL (0.0-0.7); Absolute Lymphocyte Count 1.83 10^3/uL (1.2-3.4); Absolute Monocyte Count 0.48 10^3/uL (0.1-0.8); Absolute Neutrophil Count 2.83 10^3/uL (1.2-6.7); Basophils % 1.3; Eosinophils % 3.2; HCT 45.6 % (40.0-50.0); HGB 15.4 g/dL (13.5-17.5); Immature Grans % 0.2; MCH 29.8 pg (27.0-33.0); MCHC 33.8 % (32.0-36.0); MCV 88 fL (80-95); MPV 11.7 fL (8.0-11.0); Monocytes % 8.9; Neutrophils % 52.4; Platelet Count 199 10^3/uL (130-400); RBC 5.17 10^6/uL (4.36-5.78); RDW 12.1 % (11.8-14.1); RDW-SD 39.4 fL; WBC 5.39 10^3/uL (4.4-10.8)
[2022-03-28 09:41] LABS: ALT 43 U/L (16-63); AST 37 U/L (15-37); Alkaline Phosphatase 65 U/L (46-116); Anion Gap 6.2 mmol/L (3-11); BUN 18 mg/dL (7-18); Bilirubin, Total 0.8 mg/dL (0.2-1.0); CO2 28.8 mmol/L (21.0-32.0); CREATININE 1.1 mg/dL (0.70-1.30); Calcium 8.9 mg/dL (8.5-10.1); Calculated LDL 64 mg/dL (<100); Chloride 102 mmol/L (98-107); Cholesterol 156 mg/dL (<200); Estimated GFR 79.77 (mL/min/1.73m2); Glucose 93 mg/dL (74-106); HDL Cholesterol 69 mg/dL (40-60); Potassium 4.2 mmol/L (3.5-5.1); Sodium 137 mmol/L (136-145); TSH (W/Ref FT4) 8.09 uIU/mL (0.36-3.74); Total Protein 7.5 g/dL (6.4-8.2); Triglyceride 118 mg/dL (<150)
[2022-03-28 10:02] LABS: FREE T4 0.77 ng/dL (0.76-1.46)
[2022-03-28 20:45] LABS: PSA, Screening 2.7 ng/mL (<=3.5)
== END 2022-03-28 03:12 | disposition home or self-care (01) ==
LOC: LBO 03:12
PROVIDERS: PCP Nurse Practitioner Family; Visit Provider Nurse Practitioner Family
DX: D64.9 Anemia, unspecified (principal); E78.5 Hyperlipidemia, unspecified; E03.9 Hypothyroidism, unspecified; I10 Essential (primary) hypertension; Z12.5 Encounter for screening for malignant neoplasm of prostate
CPT/HCPCS: 36415; 80053; 80061; 84153; 84439; 84443; 85025

== ENCOUNTER 2022-07-02 08:32 | Outpatient (CLI) | payer BC, SELFPAY ==
[2022-07-02 08:25] LABS: TSH (W/Ref FT4) 4.71 uIU/mL (0.36-3.74)
[2022-07-02 08:42] LABS: FREE T4 0.79 ng/dL (0.76-1.46)
== END 2022-07-02 08:33 | disposition home or self-care (01) ==
LOC: LBO 08:34
PROVIDERS: PCP Nurse Practitioner Family; Visit Provider Nurse Practitioner Family
DX: E03.9 Hypothyroidism, unspecified (principal)
CPT/HCPCS: 36415; 84439; 84443

== ENCOUNTER 2022-07-14 09:51 | Outpatient (CLI) | payer BC, SELFPAY ==
--- NOTE | 2022-07-14 09:15 | DI.RAD_ITS ---
Exam(s) XR KNEE RT 4V AP,LAT,KIMO,PAT EXAM: XR KNEE RT 4V AP,LAT,KIMO,PAT CLINICAL HISTORY: right knee pain. TECHNIQUE: 2D digital imaging was performed. COMPARISON: CR XR knee LT 3V AP,lat,kimo from 08/20/2018 FINDINGS: Four views: No evidence fracture but there is a joint effusion. In addition, there is no osteochondral defect in the articular surface of the medial femoral condyle. This measures approximately 8 millimeter wide. There is also a small calcific density just medial to the medial femoral condyle. Difficult to det ermine if this is a loose body related to the osteochondral defect or this is a small osteophyte on t he medial aspect of the condyle. IMPRESSION: Significant osteochondral defect on the weight surface of the medial femoral condyle. Joint effusion . DATA REPOSITORY: RADIATION DOSE DELIVERED:
== END 2022-07-14 09:52 | disposition home or self-care (01) ==
LOC: DIORS 09:51
PROVIDERS: PCP Nurse Practitioner Family; Visit Provider Physician Assistant
DX: M25.561 Pain in right knee (principal); M25.461 Effusion, right knee; M21.861 Other specified acquired deformities of right lower leg
CPT/HCPCS: 73564

== ENCOUNTER 2022-07-17 02:45 | Outpatient (CLI) | payer BC, SELFPAY ==
--- NOTE | 2022-07-17 07:15 | DI.MRI_ITS ---
Exam(s) MR LOWER JOINT RT WO EXAM: MR LOWER JOINT RT WO CLINICAL HISTORY: R KNEE PAIN,internal derangement,osteochondral defect,m23.91,m95.8. TECHNIQUE: Multiplanar multisequence MRI was performed. COMPARISON: MR MRI LEFT KNEE WO from 09/10/2018 CR XR KNEE RT 4V AP,LAT,KIMO,PAT from 07/14/2022 FINDINGS: BONES: There is a contusion of the medial femoral condyle. There is thinning of the overlying cartil age extending down to bone with abnormal signal in the underlying bone. This is in the region of the declivity seen on plain films. JOINTS: A moderate-sized joint effusion is present. Articular cartilage: Patellofemoral joint: Thinning of cartilage over the medial facet Medial femoral tibial joint: Multifocal areas of cartilage thinning extending down to bone seen anter iorly as well as posteriorly. Lateral femoral tibial joint: Focal areas of high signal in the cartilage of the lateral tibial plate au. TENDONS: Extensor mechanism: Unremarkable. Medial retinaculum: Unremarkable. Lateral retinaculum: Unremarkable. Popliteus: Unremarkable. MUSCLES: Unremarkable. MENISCI: The medial meniscus shows a horizontal tear extending through the posterior horn and body wi th extension to the inferior articular surface. The body appears diminutive which could be degenerat carter. No displaced fragment is visible.. The lateral meniscus is unremarkable. SOFT TISSUES: Minimal Rodrigues's cyst. LIGAMENTS: Anterior Cruciate: Unremarkable. Posterior Cruciate: Unremarkable. Medial Collateral:Unremarkable. Lateral Collateral: Unremarkable. IMPRESSION: Contusion and cartilage defect of the medial femoral condyle. Horizontal tear of the posterior horn and body of the medial meniscus. DATA REPOSITORY:
== END 2022-07-17 03:05 ==
LOC: DI 02:46
PROVIDERS: PCP Nurse Practitioner Family; Visit Provider Student in an Organized Health Care Education/Training Program
DX: M23.91 Unspecified internal derangement of right knee (principal); M95.8 Other specified acquired deformities of musculoskeletal system
CPT/HCPCS: 73721

== ENCOUNTER 2022-08-21 06:15 | Day surgery (SDC) | payer BC, SELFPAY ==
[2022-08-21] VITALS (9 sets, daily range): BP systolic 94–127; BP diastolic 53–88; PULSE 47–56; RESP 11–16; TEMP 36.4–36.8; O2SAT 93–100; BMI 24.9
[2022-08-21] MEDS: Lactated Ringers 1,000 ML 30 ML IV (06:49)
--- NOTE | 2022-08-21 06:52 | W.ANESPRE ---
General Info Date of Service Date Performed: 08/21/22 Height: 6 ft 3 in Weight: 90.4 kg Body Mass Index (BMI): 24.9 Surgical Procedure: Operation Date: 08/21/22 07:40 Proposed Procedure Side Surgeon p Knee Arthroscopy w/ Any Indicated Meniscal & Chondral Surgery, Possible Micro Fracture Right Ace Chavez MD Meds Allergies and Home Medications Allergies Allergy/AdvReac Type Severity Reaction Status Date / Time lisinopril AdvReac Other (See Verified 08/21/22 06:25 Comment) seasonal allergy Allergy nasal Uncoded 08/20/22 14:10 congestion, blood shot eyes to ragweed Home Medication Medication Instructions Recorded aspirin 81 mg tablet,delayed 81 mg PO DAILY 05/20/18 release (Adult Low Dose Aspirin) fluticasone propionate 50 50 mcg NS DAILY PRN allergy 09/09/19 mcg/actuation nasal symptoms #1 inh spray,suspension nitroglycerin 0.4 mg sublingual 0.4 mg sublingual Q5-15M PRN chest 04/06/20 tablet pain #30 tabs multivitamin with iron (Daily 1 tab PO DAILY 01/01/21 Multiple Vitamins with Iron tablet) clonazepam 0.5 mg tablet 0.5 mg PO BID PRN anxiety #20 tabs 03/14/22 trazodone 100 mg tablet 100 mg PO QHS PRN insomnia #90 tabs 03/14/22 atorvastatin 40 mg tablet (Lipitor) 40 mg PO DAILY #90 tabs 05/07/22 levothyroxine 137 mcg tablet 137 mcg PO DAILY #90 tab-caps 07/02/22 bupropion HCl 300 mg 24 hr tablet, 300 mg PO QAM #90 tabs 08/20/22 extended release metoprolol succinate 25 mg 12.5 mg PO BID #90 tabs 08/20/22 tablet,extended release 24 hr aspirin 81 mg tablet,delayed 81 mg PO BID Prevent blood clot 30 08/21/22 release days #60 tabs naproxen 250 mg tablet 250 - 500 mg PO BID PRN #40 tabs 08/21/22 oxycodone 5 mg tablet 5 - 10 mg PO Q4H PRN moderate to 08/21/22 severe pain #18 tabs Current Visit Medications: Current Medications Generic Name Dose Route Start Last Admin Trade Name Freq PRN Reason Stop Dose Admin Ringer's Solution 1,000 mls @ 30 mls/hr 08/21/22 06:00 08/21/22 06:49 IV 09/19/22 23:59 30 mls/hr INFUSION MARGARITA Administration Cefazolin Sodium/Dextrose 2 gm in 50 mls @ 100 mls/hr 08/21/22 06:00 Ancef Duplex IVPB 08/21/22 16:00 PREOP MARGARITA IV Miscellaneous Supplies 1 each 08/21/22 06:00 Iv Access IV 09/19/22 23:59 DIRECTED MARGARITA Sodium Chloride 0 ml 08/21/22 06:00 Normal Saline Flush 10 Ml Syr IV 09/19/22 23:59 PRN PRN Sodium Chloride 0 ml 08/21/22 06:00 Normal Saline 10 Ml Vial IJ 09/19/22 23:59 DIRECTED PRN Sterile Water 0 ml 08/21/22 06:00 Water,Injection,Sterile 10 Ml Vial IJ 09/19/22 23:59 DIRECTED PRN PFSH Active Problems Active Problems: Problem Status Onset Code Acute medial meniscus tear of right knee ~01/2022 S83.241A Chondromalacia, right knee M94.261 Internal derangement of right knee M23.91 Osteochondral defect M95.8 Tendinitis involving left hip abductors M76.892 Vitamin D deficiency E55.9 Atherosclerotic heart disease of [place] coronary artery without angina pectoris 05/19/18 I25.10 Essential (primary) hypertension I10 Mixed hyperlipidemia 05/19/18 E78.2 CAD (coronary artery disease) 05/19/18 I25.10 Hypothyroidism E03.9 Radiculopathy, cervicothoracic region 03/26/16 M54.13 Insomnia 08/31/14 G47.00 Anxiety 08/31/14 F41.9 Allergic rhinitis 03/26/16 J30.9 Medical History Medical History Anemia, normocytic normochromic Hypothyroidism NSTEMI (non-ST elevated myocardial infarction) (05/19/18) S/p SUSAN to distal LAD SARS-CoV-2 positive (~12/16/21) Tear of medial meniscus of left knee, current Surgical History Surgical History History of coronary artery stent placement History of ear surgery S/P cardiac cath (05/19/18) drug-eluting stent distal vessel [facility] Status post tonsillectomy and adenoidectomy Tobacco Smoking/Tobacco Use Status: Former Tobacco Use Alcohol Alcohol Intake: current Alcohol intake frequency: 0-2 drinks per day Alcohol type: beer Substance Use Substance use: Never Substance use type: does not use Vital Signs and Lab Results Vital Signs Most Recent Vital Signs in EMR: Most Recent Vital Signs Temp Pulse Resp BP Pulse Ox 36.4 C L 51 L 16 127/88 99 08/21/22 06:28 08/21/22 06:28 08/21/22 06:28 08/21/22 06:28 08/21/22 06:28 Lab Results Blood Type / Crossmatch: No Data to Display Complete Blood Count: No Data to Display Complete Metabolic Panel: No Data to Display Liver Function Panel: No Data to Display Coagulation Panel: No Data to Display Cardiac Panel: No Data to Display Arterial Blood Gas: No Data to Display Venous Blood Gas: No Data to Display Pancreas Panel: No Data to Display Thyroid Panel: No Data to Display Infectious Disease: No Data to Display Blood Cultures: No Data to Display Toxicology Panel: No Data to Display Imaging and Studies Imaging and Studies Study information below may be from another EMR and interpreted by another provider. Please see original notes in EMR for more complete details. EKG Summary: EKG PATIENT NAME: SHEY ADDISON #: [id number] ORDERING PROVIDER: Francisca Hernandez PRIMARY CARE PROVIDER: ALYSE CORTEZ MD DATE/TIME OF SERVICE: 05/26/20 1612 : 1965PERFORMING LOCATION: ER APPROVED REPORT Exam: Resting ECG Patient Location: E HR:47 bpm ECG Measurements Heart Rate 47 AXIS OK 168 P 49 QRSd 89 QRS 13 QT 460 T15 QTc 405 Conclusion Sinus bradycardia...rate< 60 Probable left atrial enlargement...P >50mS, <-0.10mV V1 Stress Test Summary: Date of study: 09/27/2014 *PATIENT PRESENTATION* Height: 190.5cm (75in ) Blood Pressure: Weight: 94.5kg (208lb ) BSA: 2.25m^2 Ordering physician: Manjeet Wood MD Impressions: Normal study after maximal exercise without reproduction of symptoms. Echocardiogram Summary: 09/2020: EF 55%, Mild MR Cardiac Catheterization Summary: Previous stent for AMI. Anesthesia Assessment and Plan Anesthesia History Personal History: PONV and Delayed Emergence Family History: No Family History of Anesthesia Complications Exercise Tolerance Exercise Tolerance: Metabolic Equivalents>4 Pertinent Negatives Pertinent Negatives: No Symptoms of GERD, No Major Pulmonary Symptoms or Complaints and No History of CVA/TIA Cardiac & Pulmonary Exam Cardiac Exam: Normal S1/S2 Heart Sounds Pulmonary Exam: Clear Bilateral Breath Sounds Implantable Cardiac Device Does patient have a Pacemaker or an ICD?: No Airway Exam Known Difficult Airway: No Mallampati Class: 3 Mouth Opening: Normal (> 3cm) Thyromental Distance: Greater than 3 cm Neck Range of Motion: Full ROM Neck Circumference: Normal Teeth Condition: Normal Dentition ASA Classification ASA Score: ASA 2 Emergency Case?: No NPO Status NPO Status: NPO Clears >2 hours, Solids >8 hours Anesthesia Plan Resuscitation Status: Full Code Anesthesia Technique: General Anesthesia Airway Planned: LMA Monitors Used: Standard Monitors
--- NOTE | 2022-08-21 07:12 | W.PM.DSUDISC ---
Date of service: 08/21/22 Time of Service: 11:00 Discharge Plan Disposition Condition: Stable Discharge Details Attending Provider: Ace Chavez Primary Care Provider: Anabel Barroso Home Meds and New Rx's Prescriptions: New naproxen 250 mg tablet 250 - 500 mg PO BID PRNQty: 40 0RF Rx Instructions: take with a meal aspirin 81 mg tablet,delayed release (DR/EC) 81 mg PO BID 30 Days Qty: 60 0RF oxycodone 5 mg tablet 5 - 10 mg PO Q4H MDD 30 mg PRN (Reason: moderate to severe pain) Qty: 18 0RF Continued nitroglycerin 0.4 mg tablet, sublingual 0.4 mg SL Q5-15M PRN (Reason: chest pain) Qty: 30 0RF Rx Instructions: Chest pain q5min PRN, max of 3 doses in 15 min. trazodone 100 mg tablet 100 mg PO QHS PRN (Reason: insomnia) Qty: 90 3RF clonazepam 0.5 mg tablet 0.5 mg PO BID MDD 1 mg PRN (Reason: anxiety) Qty: 20 0RF multivitamin with iron [Daily Multiple Vitamins/Iron] Tablet 1 tab PO DAILY aspirin [Adult Low Dose Aspirin] 81 mg tablet,delayed release (DR/EC) 81 mg PO DAILY fluticasone propionate 50 mcg/actuation spray,suspension 50 mcg NS DAILY PRN (Reason: allergy symptoms) Qty: 1 2RF atorvastatin [Lipitor] 40 mg tablet 40 mg PO DAILY Qty: 90 3RF levothyroxine 137 mcg tablet 137 mcg PO DAILY Qty: 90 0RF Rx Instructions: Administer in the morning on an empty stomach, at least 30-60 minutes before food bupropion HCl 300 mg tablet extended release 24 hr 300 mg PO QAM Qty: 90 3RF metoprolol succinate 25 mg tablet extended release 24 hr 12.5 mg PO BID Qty: 90 3RF Rx Instructions: Pt takes as split dose to prevent negative impact on exercise tolerance Discharge Instructions Additional Instructions: Surgery: Right knee arthroscopy with partial medial meniscectomy and extensive debridement Activity: Weightbearing as tolerated. Advance range of motion as comfort allows. No knee brace or crutches needed as soon as comfortable. Okay to start low-impact activities like short walks and spin/exercise bike in about 2 weeks. Recommend avoiding high?impact activities, pivoting, and squatting for about 6 weeks. A physical therapy prescription will be provided on follow-up if needed.. Prescriptions: Starting tomorrow morning? Aspirin 81 mg take 1 twice daily to prevent a blood clot for 30 days (until in-office follow up) Naproxen 250 mg take 1-2 every 12 hours with a meal as needed for moderate pain Oxycodone 5 mg take 1-2 every 4-6 hours as needed for severe pain You may use [id number] Tylenol (acetaminophen) as needed for mild pain. These pain medications may be taken all at once or in different combinations as needed. Also, recommend Colace (docusate) as a stool softener as surgery and pain medicine cause constipation. You may try [id number] diphenhydramine (Benadryl) 25-50 mg nightly as a sleep aid Dressings: Leave dressing in place for 3 days. May then remove and leave open to air or cover incisions with Band-Aids. Leave the sticky Steri-Strips in place until they fall off or remove them after you shower. May shower after 5 days. Follow-up: Nurse phone follow-up in 10-14 days, reschedule in?person follow-up with Dr. Chavez You may take off the leg compression stockings this evening at home. You may also leave them on a few days longer if you have a history of leg swelling or edema. Let us know right away if you develop any redness, drainage, fevers, chest pain, or trouble breathing. Do not drink alcohol or drive for at least 24 hours after anesthesia. Please call the office during business hours with any questions or concerns. DS: Diagnosis Discharge Diagnosis (1) Acute medial meniscus tear of right knee: Status: Acute (2) Chondromalacia, right knee: Status: Acute
--- NOTE | 2022-08-21 07:20 | W.PM.OP ---
Date of service: 08/21/22 Time of Service: 07:30 Operative Note Operative Note DATE OF PROCEDURE: 08/21/22 PRE-OP DIAGNOSIS: Right knee 1. Medial meniscus tear 2. Chondromalacia POST-OP DIAGNOSIS: same Right knee 1. Medial meniscus tear 2. Chondromalacia 3. Suprapatellar adhesions PROCEDURE: Right knee 1. Partial medial meniscectomy, CPT #01170 2. Extensive debridement, CPT #51630: Including excision of suprapatellar adhesions, removal of loose cartilage and meniscal bodies, resection of medial gutter and intercondylar marginal osteophytes, excision of anterior and patellofemoral synovitis, and smoothing of impending loose and unstable osteochondral fragments trochlea and medial femoral condyle SURGEON: Ace Chavez [facility] COORDINATOR: None None ANESTHESIA TYPE: Local By Surgeon and General LMA/ETT Refer to Anesthesia Record ESTIMATED BLOOD LOSS: 5 PATHOLOGY: none sent TOURNIQUET TIME: 0 Patient was transported to: PACU Patient's condition: stable Indications: Please see complete medical record for details. Findings: Exam under anesthesia: [...] Arthroscopic findings: [...] Procedure Description: In the operating room, general anesthesia was induced. The patient was positioned supine on the operating room table. All bony prominences were well-padded. Preoperative antibiotics were administered. The knee was prepped and draped in the usual sterile fashion. The correct patient, procedure, and side of the procedure were all verified prior to incision. Exam under anesthesia was performed. 10 cc of 0.25% bupivacaine containing epinephrine was infiltrated about the planned anteromedial and anterolateral knee arthroscopy portals. The portals were established and a complete diagnostic arthroscopy was performed with relevant findings detailed above. The mechanical shaver was used to remove abundant engaging synovium from the patellofemoral compartment. Multiple small chondral loose bodies were removed as well as fewer meniscal fragments anteriorly and medially. The meniscal biters were used to transect multiple fairly francisco suprapatellar pouch adhesions and the shaver to resect back to stable capsular margin. In the medial gutter there was a small marginal osteophyte which was smoothed and resected with a shaver. Similarly this was done in the intercondylar area for a medial femoral condyle marginal osteophyte. Anterior synovitis was resected. A trochlear osteochondral lesion was exposed and impending loose small cartilage flap medially was resected. The remainder of the bed had abnormal cartilage and bone but was not full-thickness and did not have stable margins, was not well contained, and not appropriate for microfracture. Similarly the distal aspect posterior medial femoral condyle had an irregular shaped partial to high-grade cartilage lesion with marginal cartilage flaps smoothed leaving as much cartilage as possible but not at all appropriate for microfracture. The complex medial meniscus tear was carefully inspected. There was significant degenerative tissue with partial tearing near the root, high?grade tearing horizontally through the entire posterior horn and the tear stopped around the junction of the posterior horn meniscal body. There was what appeared to be calcific deposits throughout tear margins possibly from chondral calcinosis or chronic degeneration. Using a combination of hand instruments including meniscal biters and a power shaver and working through the anteromedial and anterolateral portals the meniscus was debrided of all torn tissue to a stable margin. Care was taken to preserve as much meniscus tissue was possible although the posterior horn did require significant resection. The meniscal remnant was probed and found to have a stable margin, stable root, and no other tears. Under direct arthroscopic visualization an 18-gauge needle was passed into the knee from superolateral into the suprapatellar pouch. The knee was copiously irrigated with arthroscopic fluid until there was a clear effluent before being drained of all fluid. The anteromedial and anterolateral portals were closed in 3-0 Monocryl in a buried interrupted fashion. [20 cc of 0.25% bupivacaine] with epinephrine containing 4 mg of morphine was infiltrated into the knee through the previously placed needle. Mastisol, Steri-Strips, and 4 x 4 gauze were applied over the incisions followed by sterile soft roll. The knee was then wrapped gently with an TRISTAN comressive bandage. The patient awoke from anesthesia without complication and was transferred to the recovery room in a stable condition.
[2022-08-21] MEDS: ceFAZolin 2 GM/50 ML BAG IVPB (07:35)
[2022-08-21] MEDS: MORPHine 4 MG/ML SYR (08:11)
[2022-08-21] MEDS: EPINEPHrine 30 MG/30 ML VIAL (08:11)
--- NOTE | 2022-08-21 12:55 | W.ANESPOSTOP ---
Postoperative Evaluation Date, Time and Location Date Performed: 08/21/22 Time Performed: 10:10 Patient Location: Day Surgery Unit Vital Signs Most Recent Imported Vital Signs: Most Recent Vital Signs Temp Pulse Resp BP Pulse Ox 36.5 C 50 L 16 123/85 100 08/21/22 09:59 08/21/22 09:59 08/21/22 09:59 08/21/22 09:59 08/21/22 09:59 Pain Score Most Recent Pain Score: Most Recent Pain Score Pain Level 2 08/21/22 09:59 Assessment Mental Status: Awake (Alert & Oriented to Patient Baseline) Airway and Respiratory Function: Patent airway with normal (patient baseline) respiratory exam Cardiovascular Function: Hemodynamically Stable Hydration Status: Adequately Hydrated Nausea & Vomiting: No Nausea or Vomiting Pain: Pain is tolerable per patient Peripheral Nerve Block: Patient did not receive a nerve block
== END 2022-08-21 10:28 | disposition home or self-care (01) ==
PROVIDERS: PCP Nurse Practitioner Family; Visit Provider Student in an Organized Health Care Education/Training Program
PROC: (CPT 29870; principal; 2022-08-21 07:30)
DX: S83.241A Other tear of medial meniscus, current injury, right knee, initial encounter (principal); M94.261 Chondromalacia, right knee; M23.8X1 Other internal derangements of right knee; M65.861 Other synovitis and tenosynovitis, right lower leg; M23.41 Loose body in knee, right knee; X50.3XXA Overexertion from repetitive movements, initial encounter; Y93.02 Activity, running
CPT/HCPCS: 29876; 29881; J0690; J1100; J1885; J2270; J2405; J2704

== ENCOUNTER 2022-10-13 15:20 | Outpatient (REF) | payer BC, SELFPAY ==
[2022-10-13 15:39] LABS: Abs Immature Grans 0.02 10^3/uL (0.0-0.06); Absolute Basophil Count 0.06 10^3/uL (0.0-0.2); Absolute Eosinophil Count 0.29 10^3/uL (0.0-0.7); Absolute Lymphocyte Count 1.76 10^3/uL (1.2-3.4); Absolute Monocyte Count 0.48 10^3/uL (0.1-0.8); Absolute Neutrophil Count 3.86 10^3/uL (1.2-6.7); Basophils % 0.9; Eosinophils % 4.5; HCT 43.1 % (40.0-50.0); HGB 14.8 g/dL (13.5-17.5); Immature Grans % 0.3; Lymphocytes % 27.2; MCH 29.7 pg (27.0-33.0); MCHC 34.3 % (32.0-36.0); MCV 87 fL (80-95); MPV 11.5 fL (8.0-11.0); Monocytes % 7.4; Neutrophils % 59.7; Platelet Count 212 10^3/uL (130-400); RBC 4.98 10^6/uL (4.36-5.78); RDW 11.7 % (11.8-14.1); RDW-SD 36.9 fL; WBC 6.47 10^3/uL (4.4-10.8)
[2022-10-13 16:21] LABS: Ferritin 164 ng/mL (26-388); Folate > 20.0 ng/mL (8.6-20.0); Vitamin B12 517 pg/mL (193-986)
== END 2022-10-13 15:21 | disposition home or self-care (01) ==
LOC: LBN 15:20
PROVIDERS: PCP Nurse Practitioner Family; Visit Provider Surgery
DX: D50.8 Other iron deficiency anemias (principal); E03.9 Hypothyroidism, unspecified; E78.2 Mixed hyperlipidemia; I11.9 Hypertensive heart disease without heart failure; I21.4 Non-ST elevation (NSTEMI) myocardial infarction; I25.10 Atherosclerotic heart disease of native coronary artery without angina pectoris; Z78.9 Other specified health status; Z98.890 Other specified postprocedural states
CPT/HCPCS: 82607; 82728; 82746; 85025

== ENCOUNTER 2022-10-24 06:15 | Day surgery (SDC) | payer BC, SELFPAY ==
--- NOTE | 2022-10-23 18:44 | W.COLOREPORT ---
Date of service: 10/24/22 Time of Service: 08:00 Colonoscopy Report Date of procedure: 10/24/22 Pre-op diagnosis general: father had colorectal cancer Post-op diagnosis procedure note: other (Moderate diverticula) Surgeon: Ariana Koenig Anesthesia Type: General:No Airway Estimated blood loss (mL): 0 Pathology: none sent Complications: None Disposition: no change Prep: Miralax/Dulcolax Retraction Time: 8 Findings: After informed consent was obtained the patient was taken to the procedure room and placed in a left decubitous position. Monitors were applied and a time out was done. The patients name, date of , procedure, allergies to medications and metal in their body was reviewed. The patient was then sedated. Once sedated and comfortable a rectal exam was done. External exam was normal. Internal exam revealed a normal sphincter tone and no palpable masses. The prostate Normal. The scope was then introduced and retrofelexed. no internal hemorrhoids were identified. The scope was then advanced to the cecum without difficulty. The TI and appendiceal orifice were identified. The prep was BBPS 3 in all segments for a total of 9. The scope was then slowly retracted over 8 minutes back into the rectum. There are no polyps or AVMs visualized. He has mild to moderate diverticular disease confined to the sigmoid colon. There are no signs of active bleeding or infection. The mucosa is pink and healthy with a normal vascular pattern. The scope was removed and the patient was woken up and taken back to Same day surgery in stable condition. The patient tolerated the procedure well and there were no immediate complications. Follow up: The patient should follow up in 5 years unless they develop changes in bowel habits or other new gastrointestinal complaints.
--- NOTE | 2022-10-23 18:45 | PDOC.DSDIS_ITS ---
Date of service: 10/24/22 Time of Service: 08:12 Discharge Plan Disposition Patient Disposition: Home Condition: Good Discharge Details Reason For Visit: colon scope Attending Provider: Ariana Koenig Primary Care Provider: Anabel Barroso Home Meds and New Rx's Prescriptions: No Action nitroglycerin 0.4 mg tablet, sublingual 0.4 mg SL Q5-15M PRN (Reason: chest pain) Qty: 30 0RF Rx Instructions: Chest pain q5min PRN, max of 3 doses in 15 min. trazodone 100 mg tablet 100 mg PO QHS PRN (Reason: insomnia) Qty: 90 3RF clonazepam 0.5 mg tablet 0.5 mg PO BID MDD 1 mg PRN (Reason: anxiety) Qty: 20 0RF polyethylene glycol 3350 17 gram/dose powder 238 g PO ONCE Qty: 238 0RF Rx Instructions: take per colonoscopy instructions bisacodyl [Dulcolax (bisacodyl)] 5 mg tablet,delayed release (DR/EC) 5 mg PO ONCE Qty: 4 0RF Rx Instructions: take per colonoscopy instructions multivitamin with iron [Daily Multiple Vitamins/Iron] Tablet 1 tab PO DAILY aspirin [Adult Low Dose Aspirin] 81 mg tablet,delayed release (DR/EC) 81 mg PO DAILY fluticasone propionate 50 mcg/actuation spray,suspension 50 mcg NS DAILY PRN (Reason: allergy symptoms) Qty: 1 2RF atorvastatin [Lipitor] 40 mg tablet 40 mg PO DAILY Qty: 90 3RF metoprolol succinate 25 mg tablet extended release 24 hr 12.5 mg PO BID Qty: 90 3RF Rx Instructions: Pt takes as split dose to prevent negative impact on exercise tolerance levothyroxine 137 mcg tablet 137 mcg PO DAILY Qty: 30 0RF Rx Instructions: Administer in the morning on an empty stomach, at least 30-60 minutes before food bupropion HCl [Wellbutrin XL] 300 mg tablet extended release 24 hr 300 mg PO QAM Discharge Instructions Additional Instructions: DSU Colonoscopy Post- Op Instructions Instructions for Everyone who is given Anesthesia: For your safety, please do the following for the next twenty-four (24) hours: *Do Not operate a motor vehicle (car, truck, motorcycle, etc.) *Do Not drink alcoholic beverages or use any recreational drugs for the first 24 hours or while taking pain medications. The medications in your body may have a reaction that can be dangerous. *Do Not make any important decisions or sign any important papers. Findings: -diverticula: Make sure you are moving your bowels on a regular basis and you are not straining to go to the bathroom. If you find you are having constipation, consider starting a fiber supplement daily such as Metamucil Follow up: -Repeat in 5 years time 1. No lifting over 20 pounds or strenuous activity for the first 24 hours after your procedure. After 24 hours there are no restrictions on your activity but you may feel fatigued for a few days. 2. After you arrive home you may have a light meal and return to your normal diet as you can tolerate it without feeling sick to your stomach. 3. You may have a bloated, gaseous feeling in your belly (abdomen) after a colonoscopy. Passing gas and belching will help. Walking or lying down on your left side with your knees flexed may relieve the discomfort. Call the office at [phone] (Office) or [phone] (Hospital) right away if you notice any of the following: a.Vomiting of blood or ?coffee ground stools?. b.Rectal bleeding 1Tbsp, blood clots or continuous bleeding. c.Severe belly (abdominal) pain. d.A hard distended belly (abdomen) and an inability to pass gas. 4. Please don?t expect to have a normal BM (bowel movement) for 2-3 days after your procedure. 5. If there are questions regarding the findings of your procedure, please contact your doctor 6. If you are unable to contact your doctor with a problem, contact the hospital at [phone]. 7. Continue all your regular medications unless directed otherwise. I understand the above instructions and have no questions. Signature of Patient or Adult Escort Name of Responsible Adult Escort Signature of Nurse Date/Time Activity:: see above Diet:: see above Discharge Orders Discharge Orders: Discharge Order (Routine); Ordered 10/24/22 Ordered By: Ariana Koenig DS: Diagnosis Discharge Diagnosis (1) Family history of colon cancer in father: Status: Acute Asessment and Plan: ? ? The patient is seen and examined after their colonoscopy.? The patient has been able to pass gas.? They are not having abdominal pain.? They have been able to tolerate liquids and a snack.? They do not have any nausea or vomiting.? They are not having any chest pain or shortness of breath.??? They are not having any rectal bleeding. Their vital signs have been stable-see nursing notes.? ? We discussed findings during their colonoscopy, and any biopsies that were done/polyps that were removed. The patient will be sent a letter with any biopsy results, and when to repeat the colonoscopy.-see discharge instructions.? ? Patient was given explicit instructions to follow-up regarding colonoscopy-refer to discharge instructions.? We reviewed resumption of medications.? Patient verbalized understanding and discharged in stable and satisfactory condition- See nursing notes.? (2) Iron deficiency anemia due to dietary causes: Status: Acute (3) Atrial dilation: Status: Acute (4) Atherosclerotic heart disease of [place] coronary artery without angina pectoris: Status: Acute (5) Essential (primary) hypertension: Status: Chronic (6) CAD (coronary artery disease): Status: Chronic (7) Mixed hyperlipidemia: Status: Chronic (8) Hypothyroidism: Status: Chronic (9) Diverticula of colon: Status: Acute
[2022-10-24 06:24] VITALS: BP 123/78; PULSE 56; RESP 17; TEMP 36.7; O2SAT 96
[2022-10-24] MEDS: Lactated Ringers 1,000 ML 80 ML IV (06:42)
--- NOTE | 2022-10-24 07:06 | W.ANESPRE ---
General Info Date of Service Date Performed: 10/24/22 Height: 6 ft 3 in Weight: 86.8 kg Body Mass Index (BMI): 23.9 Surgical Procedure: Operation Date: 10/24/22 07:35 Proposed Procedure Side Surgeon anibal Koenig, Meds Allergies and Home Medications Allergies Allergy/AdvReac Type Severity Reaction Status Date / Time lisinopril AdvReac Other (See Verified 10/24/22 06:29 Comment) seasonal allergy Allergy nasal Uncoded 10/24/22 06:29 congestion, blood shot eyes to ragweed Home Medication Medication Instructions Recorded aspirin 81 mg tablet,delayed 81 mg PO DAILY 05/20/18 release (Adult Low Dose Aspirin) fluticasone propionate 50 50 mcg NS DAILY PRN allergy 09/09/19 mcg/actuation nasal symptoms #1 inh spray,suspension nitroglycerin 0.4 mg sublingual 0.4 mg sublingual Q5-15M PRN chest 04/06/20 tablet pain #30 tabs multivitamin with iron (Daily 1 tab PO DAILY 01/01/21 Multiple Vitamins with Iron tablet) clonazepam 0.5 mg tablet 0.5 mg PO BID PRN anxiety #20 tabs 03/14/22 trazodone 100 mg tablet 100 mg PO QHS PRN insomnia #90 tabs 03/14/22 atorvastatin 40 mg tablet (Lipitor) 40 mg PO DAILY #90 tabs 05/07/22 metoprolol succinate 25 mg 12.5 mg PO BID #90 tabs 08/20/22 tablet,extended release 24 hr levothyroxine 137 mcg tablet 137 mcg PO DAILY #30 tab-caps 10/08/22 bisacodyl 5 mg tablet,delayed 5 mg PO ONCE colonscopy bowel prep 10/13/22 release (Dulcolax (bisacodyl)) #4 tabs polyethylene glycol 3350 17 238 g PO ONCE colonoscopy prep 10/13/22 gram/dose oral powder #238 grams bupropion HCl 300 mg 24 hr tablet, 300 mg PO QAM 10/24/22 extended release (Wellbutrin XL) Current Visit Medications: Current Medications Generic Name Dose Route Start Last Admin Trade Name Freq PRN Reason Stop Dose Admin Hyoscyamine Sulfate 0.125 mg 10/24/22 08:40 Hyoscyamine 0.125 Mg Sl/Oral/Chew SL 11/23/22 08:39 DIRECTED PRN Ringer's Solution 1,000 mls @ 80 mls/hr 10/24/22 06:00 10/24/22 06:42 IV 11/22/22 23:59 80 mls/hr INFUSION MARGARITA Administration IV Miscellaneous Supplies 1 each 10/24/22 06:00 Iv Access IV 11/22/22 23:59 DIRECTED MARGARITA Ondansetron HCl 4 mg 10/24/22 06:40 Ondansetron 4 Mg/2 Ml Vial IVP 11/23/22 06:39 Q4H PRN PRN Nausea / Vomiting Sodium Chloride 0 ml 10/24/22 06:00 Normal Saline Flush 10 Ml Syr IV 11/22/22 23:59 PRN PRN Sodium Chloride 0 ml 10/24/22 06:00 Normal Saline 10 Ml Vial IJ 11/22/22 23:59 DIRECTED PRN Sterile Water 0 ml 10/24/22 06:00 Water,Injection,Sterile 10 Ml Vial IJ 11/22/22 23:59 DIRECTED PRN PFSH Active Problems Active Problems: Problem Status Onset Code Family history of colon cancer in father Z80.0 Vegan diet Z78.9 Iron deficiency anemia due to dietary causes D50.8 Atrial dilation I51.7 LVH (left ventricular hypertrophy) I51.7 Acute medial meniscus tear of right knee ~01/2022 S83.241A Chondromalacia, right knee M94.261 Tendinitis involving left hip abductors M76.892 Vitamin D deficiency E55.9 Atherosclerotic heart disease of [place] coronary artery without angina pectoris 05/19/18 I25.10 Essential (primary) hypertension I10 Mixed hyperlipidemia 05/19/18 E78.2 CAD (coronary artery disease) 05/19/18 I25.10 Hypothyroidism E03.9 Radiculopathy, cervicothoracic region 03/26/16 M54.13 Insomnia 08/31/14 G47.00 Anxiety 08/31/14 F41.9 Allergic rhinitis 03/26/16 J30.9 Medical History Medical History Anemia, normocytic normochromic Hypothyroidism NSTEMI (non-ST elevated myocardial infarction) (05/19/18) S/p SUSAN to distal LAD SARS-CoV-2 positive (~12/16/21) Tear of medial meniscus of left knee, current Medical History Comments:: PONV as a child per pt. Surgical History Surgical History History of coronary artery stent placement History of ear surgery S/P cardiac cath (05/19/18) drug-eluting stent distal vessel [facility] Status post tonsillectomy and adenoidectomy Tobacco Smoking/Tobacco Use Status: Former Tobacco Use Alcohol Alcohol Intake: current Alcohol intake frequency: 0-2 drinks per day Alcohol type: beer Substance Use Substance use: Never Substance use type: does not use Vital Signs and Lab Results Vital Signs Most Recent Vital Signs in EMR: Most Recent Vital Signs Temp Pulse Resp BP Pulse Ox 36.7 C 56 L 17 123/78 96 10/24/22 06:24 10/24/22 06:24 10/24/22 06:24 10/24/22 06:24 10/24/22 06:24 Lab Results Blood Type / Crossmatch: No Data to Display Complete Blood Count: White Blood Count 6.47 10^3/uL (4.4-10.8) 10/13/22 15:10 Red Blood Count 4.98 10^6/uL (4.36-5.78) 10/13/22 15:10 Hemoglobin 14.8 g/dL (13.5-17.5) 10/13/22 15:10 Hematocrit 43.1 % (40.0-50.0) 10/13/22 15:10 Platelet Count 212 10^3/uL (130-400) 10/13/22 15:10 Complete Metabolic Panel: No Data to Display Liver Function Panel: No Data to Display Coagulation Panel: No Data to Display Cardiac Panel: No Data to Display Arterial Blood Gas: No Data to Display Venous Blood Gas: No Data to Display Pancreas Panel: No Data to Display Thyroid Panel: No Data to Display Infectious Disease: No Data to Display Blood Cultures: No Data to Display Toxicology Panel: No Data to Display Imaging and Studies Imaging and Studies Study information below may be from another EMR and interpreted by another provider. Please see original notes in EMR for more complete details. EKG Summary: EKG PATIENT NAME: SHEY ADDISON #: [id number] ORDERING PROVIDER: Francisca Hernandez PRIMARY CARE PROVIDER: ALYSE CORTEZ MD DATE/TIME OF SERVICE: 05/26/20 1612 : 1965PERFORMING LOCATION: ER APPROVED REPORT Exam: Resting ECG Patient Location: E HR:47 bpm ECG Measurements Heart Rate 47 AXIS KS 168 P 49 QRSd 89 QRS 13 QT 460 T15 QTc 405 Conclusion Sinus bradycardia...rate< 60 Probable left atrial enlargement...P >50mS, <-0.10mV V1 Stress Test Summary: Date of study: 09/27/2014 *PATIENT PRESENTATION* Height: 190.5cm (75in ) Blood Pressure: Weight: 94.5kg (208lb ) BSA: 2.25m^2 Ordering physician: Manjeet Wood MD Impressions: Normal study after maximal exercise without reproduction of symptoms. Echocardiogram Summary: 09/2020: EF 55%, Mild MR Cardiac Catheterization Summary: Previous stent for AMI. Anesthesia Assessment and Plan Anesthesia History Personal History: PONV Family History: No Family History of Anesthesia Complications Exercise Tolerance Exercise Tolerance: Metabolic Equivalents>4 Pertinent Negatives Pertinent Negatives: No Symptoms of GERD and No Major Pulmonary Symptoms or Complaints Cardiac & Pulmonary Exam Cardiac Exam: Normal S1/S2 Heart Sounds Pulmonary Exam: Clear Bilateral Breath Sounds Implantable Cardiac Device Does patient have a Pacemaker or an ICD?: No Airway Exam Known Difficult Airway: No Mallampati Class: 3 Mouth Opening: Normal (> 3cm) Thyromental Distance: Greater than 3 cm Neck Range of Motion: Full ROM Neck Circumference: Normal Teeth Condition: Normal Dentition ASA Classification ASA Score: ASA 3 Emergency Case?: No NPO Status NPO Status: NPO Clears >2 hours, Solids >8 hours Anesthesia Plan Resuscitation Status: Full Code Anesthesia Technique: General Anesthesia Airway Planned: Natural Airway Monitors Used: Standard Monitors
[2022-10-24 07:09] VITALS: BMI 23.9
[2022-10-24 08:00] VITALS: BP 97/72; PULSE 54; RESP 16; TEMP 36.5; O2SAT 95
[2022-10-24 08:15] VITALS: BP 104/78; PULSE 47; RESP 16; O2SAT 97
--- NOTE | 2022-10-24 08:28 | W.ANESPOSTOP ---
Postoperative Evaluation Date, Time and Location Date Performed: 10/24/22 Time Performed: : Patient Location: Day Surgery Unit Vital Signs Most Recent Imported Vital Signs: Most Recent Vital Signs Temp Pulse Resp BP Pulse Ox 36.5 C 47 L 16 104/78 97 10/24/22 08:00 10/24/22 08:15 10/24/22 08:15 10/24/22 08:15 10/24/22 08:15 Pain Score Most Recent Pain Score: Most Recent Pain Score Pain Level 0 10/24/22 08:15 Assessment Mental Status: Awake (Alert & Oriented to Patient Baseline) Airway and Respiratory Function: Patent airway with normal (patient baseline) respiratory exam Cardiovascular Function: Hemodynamically Stable Hydration Status: Adequately Hydrated Nausea & Vomiting: No Nausea or Vomiting Pain: Pt. Denies Any Pain Peripheral Nerve Block: Patient did not receive a nerve block
== END 2022-10-24 09:29 | disposition home or self-care (01) ==
PROVIDERS: PCP Nurse Practitioner Family; Visit Provider Surgery
PROC: 0DJD8ZZ Inspection of Lower Intestinal Tract, Via Natural or Artificial Opening Endoscopic (ICD-10-PCS; CPT 45378; principal; 2022-10-24 07:30)
DX: Z12.11 Encounter for screening for malignant neoplasm of colon (principal); Z80.0 Family history of malignant neoplasm of digestive organs; K57.30 Diverticulosis of large intestine without perforation or abscess without bleeding
CPT/HCPCS: 45378

== ENCOUNTER 2022-10-29 10:31 | Outpatient (CLI) | payer BC, SELFPAY ==
--- NOTE | 2022-10-29 10:30 | DI.RAD_ITS ---
Exam(s) XR KNEE RT 2V AP,LAT EXAM: XR KNEE RT 2V AP,LAT CLINICAL HISTORY: right knee pain. TECHNIQUE: 2D digital imaging was performed. COMPARISON: Prior x-rays 07/14/2022. FINDINGS: No evidence of acute fracture. Joint effusion is again noted. Without a tunnel view it is difficult to accurately compare the previously described osteochondral de fect at the articular surface of the medial femoral condyle to the previous study of 07/14/2022. There is no further no tearing of the medial compartment. Lateral compartment continues to exhibit n ormal space. Bone density normal. IMPRESSION: As above but difficult to compared to the prior study given that there is no tunnel view on the prese nt study. DATA REPOSITORY: RADIATION DOSE DELIVERED:
== END 2022-10-29 10:32 | disposition home or self-care (01) ==
LOC: DIORS 10:31
PROVIDERS: PCP Nurse Practitioner Family; Referring Provider Nurse Practitioner Family; Visit Provider Physician Assistant
DX: M25.561 Pain in right knee (principal)
CPT/HCPCS: 73560

== ENCOUNTER → 2022-12-11 01:26 | Outpatient (CLI) | payer BC, SELFPAY ==
--- NOTE | 2022-12-11 08:35 | DI.MRI_ITS ---
Exam(s) MR LOWER JOINT RT WO EXAM: MR LOWER JOINT RT WO CLINICAL HISTORY: R KNEE PAIN,CHONDROMALACIA, M94.261. TECHNIQUE: Multiplanar multisequence MRI was performed. COMPARISON: MR MR LOWER JOINT RT WO from 07/17/2022 CR XR KNEE RT 2V AP,LAT from 10/29/2022 FINDINGS: BONES: There is no fracture or contusion pattern. JOINTS: A moderate joint effusion is present. No loose bodies. Articular cartilage: Patellofemoral joint: Articular cartilage shows mild thinning laterally. Medial femoral tibial joint: Non severe thinning extending down to bone with irregularity of the cor tical surface and underlying marrow edema. Findings appear worse when compared the previous exam. S mall spurs from the medial femoral condyle and medial tibial plateau. Mild cartilage thinning withou t focal defect of the medial tibial plateau. Lateral femoral tibial joint: Articular cartilage is unremarkable. TENDONS: Extensor mechanism: Unremarkable. Medial retinaculum: Unremarkable. Lateral retinaculum: Unremarkable. Popliteus: Unremarkable. MUSCLES: Unremarkable. MENISCI: The medial meniscus is diminutive and peripherally displaced. This is presumably cyst post meniscectomy changes. Tiny cyst noted posterior to the posterior horn of the medial meniscus.. The lateral meniscus is unremarkable. SOFT TISSUES: Minimal Rodrigues's cyst. LIGAMENTS: Anterior Cruciate: Unremarkable. Posterior Cruciate: Unremarkable. Medial Collateral:Unremarkable. Lateral Collateral: Unremarkable. OTHER: IMPRESSION: Degenerative changes of the medial femoral tibial joint with severe chondromalacia of the medial femo ral condyle. Post meniscectomy changes of the medial meniscus. DATA REPOSITORY:
== END ==
PROVIDERS: PCP Nurse Practitioner Family; Visit Provider Student in an Organized Health Care Education/Training Program
DX: M94.261 Chondromalacia, right knee (principal); Z98.890 Other specified postprocedural states
CPT/HCPCS: 73721

== ENCOUNTER 2023-02-11 02:59 | Outpatient (CLI) | payer BC, SELFPAY ==
[2023-02-11 14:27] LABS: TSH (W/Ref FT4) 5.15 uIU/mL (0.36-3.74)
[2023-02-11 14:42] LABS: FREE T4 0.87 ng/dL (0.76-1.46)
== END 2023-02-11 03:00 | disposition home or self-care (01) ==
LOC: LBO 02:59
PROVIDERS: PCP Nurse Practitioner Family; Visit Provider Student in an Organized Health Care Education/Training Program
DX: E03.9 Hypothyroidism, unspecified (principal); I10 Essential (primary) hypertension; R79.89 Other specified abnormal findings of blood chemistry
CPT/HCPCS: 36415; 84439; 84443

== ENCOUNTER → 2023-03-18 02:19 | Outpatient (CLI) | payer BC, SELFPAY ==
--- NOTE | 2023-03-18 07:00 | DI.RAD_ITS ---
Exam(s) XR LUMBAR SPINE COMPLETE EXAM: XR LUMBAR SPINE COMPLETE CLINICAL HISTORY: Chronic lumbar pain,lumbar ddd,m51.36. TECHNIQUE: 2D digital imaging was performed. COMPARISON: No exams were available for comparison FINDINGS: Five views. There is scoliosis convex left having epicenter at L2-3 level where there is asymmetric advanced narr owing of the right-side of the disc space at this level. This is probably associated with right-side d foraminal stenosis at this level. Other disc spaces exhibit normal height. There are no fractures but there is anterolisthesis of L5 upon S1 which appears to be related to pars defects. There is only mild narrowing of the L5-S1 disc space. L4-5 exhibits normal disc height. Mild facet arthropathy noted. SI joints appear unremarkable. Bone density normal. No osseous lesio ns. IMPRESSION: There is anterolisthesis L5 upon S1 which appears to be related to L5 pars defects Advanced disc space narrowing noted on the right side of L2-3 level with resultant scoliosis convex l eft. This asymmetric narrowing of the disc space is probably associated with right-sided foraminal s tenosis. If clinically indicated further study with MRI can be performed for added sensitivity and specificity . DATA REPOSITORY: RADIATION DOSE DELIVERED:
== END ==
PROVIDERS: PCP Family Medicine; Visit Provider Family Medicine
DX: M51.36 Other intervertebral disc degeneration, lumbar region (principal); M43.17 Spondylolisthesis, lumbosacral region; M41.9 Scoliosis, unspecified; M48.061 Spinal stenosis, lumbar region without neurogenic claudication
CPT/HCPCS: 72110

== ENCOUNTER 2023-12-02 03:06 | Outpatient (CLI) | payer BC, SELFPAY ==
[2023-12-02 15:37] LABS: TSH (W/Ref FT4) 2.89 uIU/mL (0.36-3.74)
[2023-12-03 08:04] LABS: PSA, Screening 1.7 ng/mL (<=3.5)
== END 2023-12-02 03:07 | disposition home or self-care (01) ==
PROVIDERS: PCP Family Medicine; Visit Provider Family Medicine
DX: E03.9 Hypothyroidism, unspecified (principal); Z80.42 Family history of malignant neoplasm of prostate
CPT/HCPCS: 36415; 84153; 84443

== ENCOUNTER 2024-02-27 22:05 | Emergency (ER) | payer BC, SELFPAY ==
[2024-02-27] VITALS (21 sets, daily range): BP systolic 132–178; BP diastolic 78–92; PULSE 52–63; RESP 13–18; TEMP 37; O2SAT 93–98
--- NOTE | 2024-02-27 22:00 | RT.EKG_ITS ---
APPROVED REPORT Exam: Resting ECG Reason for Exam: chest pain Patient Location: E HR:58 bpm ECG Measurements Heart Rate 58 AXIS WI 173 P 36 QRSd 94 QRS -7 QT 443 T 25 QTc 435 Conclusion Sinus bradycardia...rate< [address] segment or T wave abnormalities to suggest occlusive AL
[2024-02-27 22:22] LABS: Abs Immature Grans 0.01 10^3/uL (0.0-0.06); Absolute Basophil Count 0.06 10^3/uL (0.0-0.2); Absolute Eosinophil Count 0.17 10^3/uL (0.0-0.7); Absolute Lymphocyte Count 2.31 10^3/uL (1.2-3.4); Absolute Monocyte Count 0.76 10^3/uL (0.1-0.8); Absolute Neutrophil Count 4.06 10^3/uL (1.2-6.7); Basophils % 0.8 %; Eosinophils % 2.3 %; HCT 45.6 % (40.0-50.0); HGB 15.1 g/dL (13.5-17.5); Immature Grans % 0.1 %; Lymphocytes % 31.3 %; MCH 29.4 pg (27.0-33.0); MCHC 33.1 % (32.0-36.0); MCV 89 fL (80-95); MPV 11.4 fL (8.0-11.0); Monocytes % 10.3 %; Neutrophils % 55.2 %; Platelet Count 182 10^3/uL (130-400); RBC 5.14 10^6/uL (4.36-5.78); RDW 11.8 % (11.8-14.1); RDW-SD 37.9 fL; WBC 7.37 10^3/uL (4.4-10.8)
--- NOTE | 2024-02-27 22:32 | DI.RAD_ITS ---
Exam(s) XR CHEST 2V PA LATERAL EXAM: XR CHEST 2V PA LATERAL CLINICAL HISTORY: Chest pain TECHNIQUE: 2D digital imaging was performed of the chest. Two images were obtained. PA and lateral views were obtained. COMPARISON: CR XR PORTABLE CHEST AP from 05/25/2018 FINDINGS: MEDIASTINUM: Normal. HEART: Normal. PULMONARY VASCULATURE: Normal. LUNGS: No focal consolidating infiltrates. PLEURAL SPACE: No pleural effusion or pneumothorax. BONE:Within normal limits for the patient's age. OTHER FINDINGS:Normal. IMPRESSION: No acute pulmonary findings. DATA REPOSITORY: RADIATION DOSE DELIVERED:
--- NOTE | 2024-02-27 22:35 | DI.VRAD_ITS ---
PROCEDURE INFORMATION: Exam: XR Chest Exam date and time: 02/27/2024 10:30 PM Age: 58 years old Clinical indication: Other: Unspecified; Patient HX: Chest pain TECHNIQUE: Imaging protocol: Radiologic exam of the chest. Views: 2 views. COMPARISON: SC XR PORTABLE CHEST AP 05/25/2018 1:22 AM FINDINGS: Lungs: Unremarkable. No consolidation. Pleural spaces: Unremarkable. No pleural effusion. No pneumothorax. Heart/Mediastinum: Unremarkable. No cardiomegaly. Bones/joints: Unremarkable. IMPRESSION: No acute findings. Dictated and Authenticated by: Gege Rincon MD. Ordering:JOAO Butcher MD
[2024-02-27 22:36] LABS: INR 1.1 (0.9-1.1); Prothrombin Time 10.9 sec (9.1-11.1)
[2024-02-27] MEDS: Aspirin 81 MG CHEW 162 MG CH (22:38)
[2024-02-27] MEDS: LORazepam 1 MG TAB PO (22:38)
[2024-02-27 22:50] LABS: ALT 38 U/L (16-63); AST 36 U/L (15-37); Albumin 4.4 g/dL (3.4-5.0); Alkaline Phosphatase 77 U/L (46-116); Anion Gap 7.7 mmol/L (3-11); BUN 16 mg/dL (7-18); Bilirubin, Total 0.47 mg/dL (0.2-1.0); CO2 33.3 mmol/L (21.0-32.0); CREATININE 1.1 mg/dL (0.70-1.30); Calcium 9.2 mg/dL (8.5-10.1); Chloride 103 mmol/L (98-107); Estimated GFR 78.79 (mL/min/1.73m2); Glucose 80 mg/dL (74-106); Lipase 46 U/L (<78); Magnesium 1.8 mg/dL (1.8-2.4); NT-proBNP 86 pg/mL (<300); Potassium 3.5 mmol/L (3.5-5.1); Sodium 144 mmol/L (136-145); Total Protein 7.9 g/dL (6.4-8.2); Troponin I 18 ng/L (<or=76)
[2024-02-27 22:55] LABS: TSH (W/Ref FT4) 13.02 uIU/mL (0.36-3.74)
[2024-02-27 23:12] LABS: FREE T4 0.74 ng/dL (0.76-1.46)
[2024-02-27 23:32] LABS: Troponin I 13 ng/L (<or=76)
--- NOTE | 2024-02-27 23:49 | W.ED.GENAD ---
Discharge Plan Disposition Patient Disposition: Home Condition: Good Discharge Details Clinical Impression: Chest pain Primary Care Provider: Martin Olivia ED Provider: Guadalupe Blackman Home Meds and New Rx's Prescriptions: Continued clonazepam 0.5 mg tablet 0.5 mg PO BID MDD 1 mg PRN (Reason: anxiety) Qty: 20 0RF nitroglycerin 0.4 mg tablet, sublingual 0.4 mg SL Q5-15M PRN (Reason: chest pain) Qty: 30 0RF Rx Instructions: Chest pain q5min PRN, max of 3 doses in 15 min. multivitamin with iron [Daily Multiple Vitamins/Iron] Tablet 1 tab PO DAILY aspirin [Adult Low Dose Aspirin] 81 mg tablet,delayed release (DR/EC) 81 mg PO DAILY fluticasone propionate 50 mcg/actuation spray,suspension 50 mcg NS DAILY PRN (Reason: allergy symptoms) Qty: 1 2RF atorvastatin [Lipitor] 40 mg tablet 40 mg PO DAILY Qty: 90 3RF trazodone 100 mg tablet 100 mg PO QHS PRN (Reason: insomnia) Qty: 90 3RF bupropion HCl [Wellbutrin XL] 300 mg tablet extended release 24 hr 300 mg PO QAM Qty: 90 1RF levothyroxine 137 mcg tablet 137 mcg PO DAILY Qty: 90 3RF Rx Instructions: Administer in the morning on an empty stomach, at least 30-60 minutes before food losartan 25 mg tablet 25 mg PO QAM Qty: 90 3RF Discharge Instructions Instructions: Chest Pain, Adult ED Additional Instructions: Your EKG, chest xray, and cardiac enzymes are all reassuring. You are not having a heart attack today. It is very important for you to followup with your primary care doctor for further evaluation and testing because your symptoms could still be due something serious, but you do not need to stay in the hospital today. Call your primary care doctor on Thursday to schedule an appointment to be seen within the following 48 hours to followup on your visit here. At that visit please discuss: -your chest pain, and whether further outpatient testing should be scheduled -your T4 level (thyroid hormone) which was very slightly low here today; they may want to repeat this test and/or adjust your levothyroxine dose. Return to the emergency department for new or worsening symptoms including new/different/worse chest pain, difficultly breathing, feeling like you are going to pass out, or if you have any other concerns. HPI General Mode of arrival: ambulatory. Date/Time Provider Initiated Documentation: 02/27/24 22:14. Limitations to Documentation: no limitations. Information obtained by: patient. HPI Narrative: 58yo M with hx CAD, MD in 2019 with stent placement, presenting for ~36 hours of chest tightness. Symptoms started yesterday, cannot recall any provoking factors. Have persisted since then. Took 2 baby aspirin this morning and then went skiing for ~5-6 hours. No increase in symptoms with exertion. Chest 'tightness' persisted, seemed to get worse this evening while at rest and so took two more baby asprin and presented to the ED. Now back to the level at has been at for most of the last day, ~3/. Sensation is dull, pressure, substernal. Has some associated jaw pain which he attributes to grinding his teeth today. Symptoms feel similar to prior anxiety attacks. No shortness of breath, palpitations, nausea, vomiting, diaphoresis, syncope, or presyncope at any point. Otherwise in his usual state of health with no fevers, chills, rash, abdominal pain, back pain, numbness, weakness, or other concerns. Related Data Home Medications ?Medication ?Instructions ?Recorded ?Confirmed aspirin 81 mg tablet,delayed 81 mg PO DAILY 05/20/18 02/27/24 release (Adult Low Dose Aspirin) fluticasone propionate 50 50 mcg NS DAILY PRN allergy 09/09/19 02/27/24 mcg/actuation nasal symptoms #1 inh spray,suspension multivitamin with iron (Daily 1 tab PO DAILY 01/01/21 02/27/24 Multiple Vitamins with Iron tablet) clonazepam 0.5 mg tablet 0.5 mg PO BID PRN anxiety #20 tabs 02/17/23 02/27/24 nitroglycerin 0.4 mg sublingual 0.4 mg sublingual Q5-15M PRN chest 02/17/23 02/27/24 tablet pain #30 tabs atorvastatin 40 mg tablet (Lipitor) 40 mg PO DAILY #90 tabs 05/21/23 02/27/24 trazodone 100 mg tablet 100 mg PO QHS PRN insomnia #90 tabs 05/21/23 02/27/24 bupropion HCl 300 mg 24 hr tablet, 300 mg PO QAM #90 tabs 11/19/23 02/27/24 extended release (Wellbutrin XL) levothyroxine 137 mcg tablet 137 mcg PO DAILY #90 tab-caps 02/02/24 02/27/24 losartan 25 mg tablet 25 mg PO QAM #90 tabs 02/02/24 02/27/24 Previous Rx's ?Medication ?Instructions ?Recorded fluticasone propionate 50 50 mcg NS DAILY PRN allergy 09/09/19 mcg/actuation nasal symptoms #1 inh spray,suspension clonazepam 0.5 mg tablet 0.5 mg PO BID PRN anxiety #20 tabs 02/17/23 nitroglycerin 0.4 mg sublingual 0.4 mg sublingual Q5-15M PRN chest 02/17/23 tablet pain #30 tabs atorvastatin 40 mg tablet (Lipitor) 40 mg PO DAILY #90 tabs 05/21/23 trazodone 100 mg tablet 100 mg PO QHS PRN insomnia #90 tabs 05/21/23 bupropion HCl 300 mg 24 hr tablet, 300 mg PO QAM #90 tabs 11/19/23 extended release (Wellbutrin XL) levothyroxine 137 mcg tablet 137 mcg PO DAILY #90 tab-caps 02/02/24 losartan 25 mg tablet 25 mg PO QAM #90 tabs 02/02/24 Allergies Allergy/AdvReac Type Severity Reaction Status Date / Time lisinopril AdvReac Other (See Verified 02/27/24 22:11 Comment) seasonal allergy Allergy nasal Uncoded 02/27/24 22:11 congestion, blood shot eyes to ragweed General Stated Complaint: Chest Pain KAYLA: 3 Review of Systems Narrative: see HPI Exam Narrative Exam Narrative: General: Alert, well appearing, well nourished, in no acute distress. Head: Normocephalic, atraumatic Neck: Trachea midline, ?Neck supple. ENT: ?MMM.? No oropharygeal lesions or exudate. Cardiac: ?RRR, no murmurs appreciated Resp: No respiratory distress. CTAB. Abd: ?Soft, non-distended, nontender Extremities: ?No deformities.? No peripheral edema. Neurologic: GCS 15. ? Moves all extremities freely against gravity Course Vital Signs Vital signs: Vital Signs Temperature 37.0 C 02/27/24 22:07 Pulse 59 L 02/27/24 22:07 Respiratory Rate 18 02/27/24 22:07 Blood Pressure 178/84 H 02/27/24 22:07 Pulse Oximetry 97 02/27/24 22:07 Temperature 37.0 C 02/27/24 22:07 Temperature Source Temporal Artery Scan 02/27/24 22:07 Pulse 54 L 02/27/24 23:16 Pulse 56 L 02/27/24 23:20 Respiratory Rate 16 02/27/24 23:20 Respiratory Effort Normal, Non-Labored 02/27/24 22:12 Respiratory Depth Normal 02/27/24 22:12 Respiratory Pattern Normal 02/27/24 22:12 Blood Pressure 147/81 H 02/27/24 23:16 Blood Pressure Mean 103 02/27/24 23:16 Blood Pressure Position Supine 02/27/24 22:07 Pulse Oximetry 94 02/27/24 23:20 Oxygen Delivery Method Room Air 02/27/24 22:07 Oxygen Flow Rate 0 02/27/24 22:07 Pain Level 3 02/27/24 22:12 Lab/Test Results Lab/Test Results: Laboratory Tests Range/Units 02/27/24 02/27/24 22:13 23:08 WBC (4.4-10.8) 10^3/uL 7.37 RBC (4.36-5.78) 10^6/uL 5.14 Hgb (13.5-17.5) g/dL 15.1 Hct (40.0-50.0) % 45.6 MCV (80-95) fL 89 MCH (27.0-33.0) pg 29.4 MCHC (32.0-36.0) % 33.1 RDW (11.8-14.1) % 11.8 Plt Count (130-400) 10^3/uL 182 MPV (8.0-11.0) fL 11.4 H Immature Gran % % 0.1 Neutrophils % % 55.2 Lymphocytes % % 31.3 Monocytes % % 10.3 Eosinophils % % 2.3 Basophils % % 0.8 Nucleated RBC % (0.0-0.3) % 0.0 Absolute Neutrophils (1.2-6.7) 10^3/uL 4.06 Absolute Lymphocytes (1.2-3.4) 10^3/uL 2.31 Absolute Monocytes (0.1-0.8) 10^3/uL 0.76 Absolute Eosinophils (0.0-0.7) 10^3/uL 0.17 Absolute Basophils (0.0-0.2) 10^3/uL 0.06 PT (9.1-11.1) sec 10.9 INR (0.9-1.1) 1.1 APTT (23.6-32.8) sec 27.0 Sodium (136-145) mmol/L 144 Potassium (3.5-5.1) mmol/L 3.5 Chloride (98-107) mmol/L 103 Carbon Dioxide (21.0-32.0) mmol/L 33.3 H Anion Gap (3-11) mmol/L 7.7 BUN (7-18) mg/dL 16 Creatinine (0.70-1.30) mg/dL 1.1 Est GFR (CKD-EPI 2020) (mL/min/1.73m2) 78.79 Glucose (74-106) mg/dL 80 Calcium (8.5-10.1) mg/dL 9.2 Magnesium (1.8-2.4) mg/dL 1.8 Total Bilirubin (0.2-1.0) mg/dL 0.47 AST (15-37) U/L 36 ALT (16-63) U/L 38 Alkaline Phosphatase (46-116) U/L 77 Troponin I (<or=76) ng/L 18 13 NT-Pro-B Natriuret Pep (<300) pg/mL 86 Total Protein (6.4-8.2) g/dL 7.9 Albumin (3.4-5.0) g/dL 4.4 Lipase (<78) U/L 46 TSH (0.36-3.74) uIU/mL 13.02 H Free T4 (0.76-1.46) ng/dL 0.74 L Medical Decision Making 58yo M with hx hypothyroid, CAD, MD in 2019 with stent placement, presenting for ~36 hours of chest tightness. Symptoms feel similar to prior anxiety attacks and were not worse with exertion today (~6 hours of skiing). Hypertensive on arrival, vital signs otherwise reassuring. BP improved to 140s/90's shortly after arrival without intervention. EKG SR, appropriate intervals, no ST segment or T wave abnormalities to suggest occlusive MD. Took two baby aspirin just prior to arrival; will give additional 162 ASA here to complete dose for potential acute coronary event. History most suggestive of anxiety, though ACS very possible given prior MD at young age. Will give 1mg ativan for anxiety as well as GI cocktail while awaiting results of workup. No tachycardia, hypoxia, or pleurtic pain to suggest pulmonary embolism. No back pain or sharp/tearing pain to suggest aortic dissection. No abdominal pain, tenderness, hematemesis to suggest peptic ulcer. -CXR independently reviewed; no focal pneumonia or pneumothorax on my view, agree with radiology read below. -Labs reviewed as below, CBC reassuring with no leukocytosis or anemia, CMP with no actionable abnormalities, lipase normal (unlikely pancreatitis), TSH high with borderline low free T4 (0.74), coags normal, dimer normal (would not further pursue pulmonary embolism or aortic dissection), BNP normal, initial troponin normal. HEART score 3 (Age 1, RF 2), low risk. 1hr and 3hr troponins reassuring. On reassessment he reports feeling somewhat better, 'just tired'. Dull chest pressure persist but is improved. With reassuring workup here appropriate for close PCP followup; the importance of this was stressed to patient. Discharged home; discharge instructions and return precuations were reviewed with patient who verbalized understanding. All questions were answered and he is in full agreement with the plan. Imaging Data Radiologic Study: Imaging: X-Ray Radiologist's impression: IMPRESSION: No acute findings. Lab Data Lab results reviewed: Yes I reviewed the patient's lab results. Labs: Laboratory Tests Range/Units 02/27/24 02/27/24 02/28/24 22:13 23:08 01:05 WBC (4.4-10.8) 10^3/uL 7.37 RBC (4.36-5.78) 10^6/uL 5.14 Hgb (13.5-17.5) g/dL 15.1 Hct (40.0-50.0) % 45.6 MCV (80-95) fL 89 MCH (27.0-33.0) pg 29.4 MCHC (32.0-36.0) % 33.1 RDW (11.8-14.1) % 11.8 Plt Count (130-400) 10^3/uL 182 MPV (8.0-11.0) fL 11.4 H Immature Gran % % 0.1 Neutrophils % % 55.2 Lymphocytes % % 31.3 Monocytes % % 10.3 Eosinophils % % 2.3 Basophils % % 0.8 Nucleated RBC % (0.0-0.3) % 0.0 Absolute Neutrophils (1.2-6.7) 10^3/uL 4.06 Absolute Lymphocytes (1.2-3.4) 10^3/uL 2.31 Absolute Monocytes (0.1-0.8) 10^3/uL 0.76 Absolute Eosinophils (0.0-0.7) 10^3/uL 0.17 Absolute Basophils (0.0-0.2) 10^3/uL 0.06 PT (9.1-11.1) sec 10.9 INR (0.9-1.1) 1.1 APTT (23.6-32.8) sec 27.0 D-Dimer (<500) ng/mlFEU 406 Sodium (136-145) mmol/L 144 Potassium (3.5-5.1) mmol/L 3.5 Chloride (98-107) mmol/L 103 Carbon Dioxide (21.0-32.0) mmol/L 33.3 H Anion Gap (3-11) mmol/L 7.7 BUN (7-18) mg/dL 16 Creatinine (0.70-1.30) mg/dL 1.1 Est GFR (CKD-EPI 2020) (mL/min/1.73m2) 78.79 Glucose (74-106) mg/dL 80 Calcium (8.5-10.1) mg/dL 9.2 Magnesium (1.8-2.4) mg/dL 1.8 Total Bilirubin (0.2-1.0) mg/dL 0.47 AST (15-37) U/L 36 ALT (16-63) U/L 38 Alkaline Phosphatase (46-116) U/L 77 Troponin I (<or=76) ng/L 18 13 12 NT-Pro-B Natriuret Pep (<300) pg/mL 86 Total Protein (6.4-8.2) g/dL 7.9 Albumin (3.4-5.0) g/dL 4.4 Lipase (<78) U/L 46 TSH (0.36-3.74) uIU/mL 13.02 H Free T4 (0.76-1.46) ng/dL 0.74 L Quality:SDOH Health Related Social Needs: No Data to Display PFSH All Active Problems (Updated 02/27/24 @ 23:49 by Guadalupe Blackman MD) Chest pain (Acute) Sebaceous gland hyperplasia (Acute ~10/23/23) Dr Radha Garza @ [facility] [place] - benign in nature - can be treated cosmetically, if becomes bothersome Fibrous papule of skin (Acute ~10/23/23) Dr Radha Garza @ [facility] [place] - benign in nature, no need for treatment at this time Poikiloderma (Acute ~10/23/23) Dr Radha Garza - benign in nature, no need for treatment at this time Basal cell carcinoma (Acute) Degenerative disc disease, lumbar (Acute) Essential tremor (Acute) Diverticula of colon (Acute) Family history of colon cancer in father (Acute) Vegan diet (Acute) Iron deficiency anemia due to dietary causes (Acute) Atrial dilation (Acute) mild echo 2020 LVH (left ventricular hypertrophy) (Acute) mild echo 2020 Acute medial meniscus tear of right knee (Acute ~01/2022) Chondromalacia, right knee (Acute) Tendinitis involving left hip abductors (Acute) Vitamin D deficiency (Acute) Atherosclerotic heart disease of [place] coronary artery without angina pectoris (Acute 05/19/18) Essential (primary) hypertension (Chronic) Mixed hyperlipidemia (Chronic 05/19/18) CAD (coronary artery disease) (Chronic 05/19/18) S/p SUSAN to distal LAD in setting of NSTEMI 04/2018; [facility] [place] [facility] Hypothyroidism (Chronic) Radiculopathy, 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) Insomnia (Chronic 08/31/14) Anxiety (Chronic 08/31/14) Allergic rhinitis (Chronic 03/26/16) Medical History (Updated 02/27/24 @ 23:49 by Guadalupe Blackman MD) SARS-CoV-2 positive (~12/16/21) Anemia, normocytic normochromic Tear of medial meniscus of left knee, current NSTEMI (non-ST elevated myocardial infarction) (05/19/18) S/p SUSAN to distal LAD Hypothyroidism Surgical History (Updated 10/24/22 @ 14:58 by Earnestine Gonzalez) History of colonoscopy (~09/2022) Status post tonsillectomy and adenoidectomy History of ear surgery History of coronary artery stent placement S/P cardiac cath (05/19/18) drug-eluting stent distal vessel [facility] Family History Father Dysplastic polyp of colon Thyroid condition Prostate cancer Grandfather Cancer Maternal Uncle Myocardial infarction maternal uncle MD 49 yo Sister Dysplastic polyp of colon Brother Dysplastic polyp of colon Other Colon cancer Social History Smoking/Tobacco Use Status: Former Tobacco Use Quit Date: 03/30/02 Smoking risk assessment performed?: Yes Alcohol Intake: current Alcohol Intake frequency: 0-2 drinks per day Alcohol type: beer Drug use: Never Substance use type: does not use Household members: spouse and children Housing: house Number of Children: 3 Communication Needs: None Do you need help understanding health information?: Never current occupation: Teacher [employer] Current gender identity: male What is your relationship status?: Panel score (0-1 are the most socially isolated patients): 1 What type of physical activity do you participate in: regular exercise, other Details: cardiac rehab and running Duration: 45-60 minutes/day Frequency: 3-4 times per week Seatbelt use: always Drive intox or ride w/intox test driver: No Working smoke detector in home: Yes Carbon monox detector in home: Yes Do you feel safe at home: Yes Do you feel safe in your relationship?: Yes
[2024-02-28] VITALS (23 sets, daily range): BP systolic 139–148; BP diastolic 82–90; PULSE 56–61; RESP 14–17; O2SAT 93–96
[2024-02-28 01:30] LABS: Troponin I 12 ng/L (<or=76)
[2024-02-28 01:58] LABS: D-Dimer 406 ng/mlFEU (<500)
== END 2024-02-28 02:17 | disposition home or self-care (01) ==
PROVIDERS: Emergency Provider Student in an Organized Health Care Education/Training Program; PCP Family Medicine
DX: R07.9 Chest pain, unspecified (principal); R68.84 Jaw pain; I10 Essential (primary) hypertension; I25.2 Old myocardial infarction; I25.10 Atherosclerotic heart disease of native coronary artery without angina pectoris; E03.9 Hypothyroidism, unspecified; Z87.891 Personal history of nicotine dependence
CPT/HCPCS: 80053; 83690; 93005; 99284; 71046; 83735; 83880; 84439; 84443; 84484; 85025; 85379; 85610; 85730; 93010

== ENCOUNTER 2024-03-07 02:54 | Outpatient (CLI) | payer BC, SELFPAY ==
[2024-03-07 16:01] LABS: Calculated LDL 38 mg/dL (<100); Cholesterol 106 mg/dL (<200); HDL Cholesterol 59 mg/dL (40-60); Triglyceride 49 mg/dL (<150)
== END 2024-03-07 02:55 | disposition home or self-care (01) ==
LOC: LBO 02:55
PROVIDERS: Nurse Practitioner Family; PCP Family Medicine; Referring Provider Family Medicine; Visit Provider Family Medicine
DX: Z00.00 Encounter for general adult medical examination without abnormal findings (principal)
CPT/HCPCS: 36415; 80061

== ENCOUNTER 2024-05-02 01:26 | Outpatient (CLI) | payer OTHER, SELFPAY | END 2024-05-02 01:27 | disposition home or self-care (01) | PROVIDERS: PCP Family Medicine; Referring Provider Family Medicine; Visit Provider Family Medicine | DX: E03.9 Hypothyroidism, unspecified (principal) | CPT/HCPCS: 36415; 84443 ==

== ENCOUNTER 2024-05-31 03:06 | Outpatient (CLI) | payer OTHER, SELFPAY ==
[2024-05-31 13:31] LABS: Abs Immature Grans 0.01 10^3/uL (0.0-0.06); Absolute Basophil Count 0.05 10^3/uL (0.0-0.2); Absolute Lymphocyte Count 1.74 10^3/uL (1.2-3.4); Absolute Monocyte Count 0.34 10^3/uL (0.1-0.8); Absolute Neutrophil Count 2.68 10^3/uL (1.2-6.7); Eosinophils % 5.9 %; HCT 43.8 % (40.0-50.0); HGB 14.1 g/dL (13.5-17.5); Immature Grans % 0.2 %; MCHC 32.2 % (32.0-36.0); MCV 90 fL (80-95); MPV 11.4 fL (8.0-11.0); Monocytes % 6.6 %; Neutrophils % 52.3 %; Platelet Count 200 10^3/uL (130-400); RBC 4.86 10^6/uL (4.36-5.78); RDW 12.6 % (11.8-14.1); RDW-SD 41.6 fL; WBC 5.12 10^3/uL (4.4-10.8)
[2024-05-31 14:22] LABS: ALT 37 U/L (16-63); AST 28 U/L (15-37); Albumin 3.8 g/dL (3.4-5.0); Alkaline Phosphatase 78 U/L (46-116); Anion Gap 5.6 mmol/L (3-11); BUN 15 mg/dL (7-18); Bilirubin, Total 0.79 mg/dL (0.2-1.0); CO2 32.4 mmol/L (21.0-32.0); Calcium 9.5 mg/dL (8.5-10.1); Chloride 104 mmol/L (98-107); Estimated GFR 88.33 (mL/min/1.73m2); Glucose 95 mg/dL (74-106); Potassium 4.3 mmol/L (3.5-5.1); Sodium 142 mmol/L (136-145); Total Protein 7.3 g/dL (6.4-8.2)
[2024-05-31 14:24] LABS: C-Reactive Protein < 0.50 mg/dL (<or=0.5)
[2024-06-01 09:55] LABS: Prealbumin 19 mg/dL (20-40)
== END 2024-05-31 03:07 | disposition home or self-care (01) ==
PROVIDERS: PCP Family Medicine; Visit Provider Family Medicine
DX: R63.4 Abnormal weight loss (principal)
CPT/HCPCS: 36415; 80053; 84134; 85025; 86140

== ENCOUNTER 2024-07-26 21:48 | Outpatient (REF) | payer OTHER, SELFPAY ==
[2024-07-26 21:55] LABS: Source Nasal/Nares
[2024-07-26 22:34] LABS: COVID-19 PCR Negative (Negative)
== END 2024-07-26 21:49 | disposition home or self-care (01) ==
LOC: LBN 21:48
PROVIDERS: PCP Family Medicine; Visit Provider Nurse Practitioner Family
DX: R68.89 Other general symptoms and signs (principal)
CPT/HCPCS: 87635